=== PATIENT | female | born 1980 | race American Indian/Alaskan Native ===

== ENCOUNTER 2019-07-16 11:08 | Emergency (ER) | payer MEDICAID, OTHER ==
[2019-07-16 11:30] VITALS: BP 139/88
[2019-07-16 13:02] LABS: Basophils # (Auto) 0.1 K/mm3 (0.0-0.1); Basophils % (Auto) 0.8 % (0.0-1.8); Eosinophils # (Auto) 0.4 K/mm3 (0.0-0.4); Eosinophils % (Auto) 6.4 % (0.0-4.3); Hematocrit 39.4 % (30.3-42.9); Hemoglobin 12.9 gm/dl (10.1-14.3); Lymphocytes # (Auto) 1.9 K/mm3 (1.2-5.4); Lymphocytes % (Auto) 30.6 % (13.4-35.0); Mean Corpuscular HGB Conc 33 % (30-34); Mean Corpuscular Volume 81 fl (79-97); Monocytes # (Auto) 0.6 K/mm3 (0.0-0.8); Monocytes % (Auto) 9.3 % (0.0-7.3); Platelet Count 205 K/mm3 (140-440); Red Blood Count 4.85 M/mm3 (3.65-5.03); Red Cell Distribution Width 14.7 % (13.2-15.2)
[2019-07-16 13:42] LABS: BUN/Creatinine Ratio 18; Blood Urea Nitrogen 11 mg/dL (7-17); Calcium 9.3 mg/dL (8.4-10.2); Hemolysis Index 306
[2019-07-16 13:46] LABS: Alanine Aminotransferase 16 units/L (7-56)
== END 2019-07-16 14:05 | disposition left against medical advice (07) ==
LOC: ED 11:08
DX: R53.1 Weakness (principal); Z53.21 Procedure and treatment not carried out due to patient leaving prior to being seen by health care provider
CPT/HCPCS: 36415; 80053; 85025; 93005; 93010

== ENCOUNTER 2019-08-23 03:06 | Inpatient (IN) | payer OTHER ==
[2019-08-23] MEDS ORDERED: ASPIRIN 325 MG TAB PO ONE (03:34)
--- NOTE | 2019-08-23 03:56 | XRay Report ---
CHEST 1 VIEW 08/23/2019 3:35 AM INDICATION / CLINICAL INFORMATION: Right chest pain for 3 days. COMPARISON: None available. FINDINGS: SUPPORT DEVICES: None. HEART / MEDIASTINUM: No significant abnormality. LUNGS / PLEURA: No significant pulmonary or pleural abnormality. No pneumothorax. ADDITIONAL FINDINGS: No significant additional findings. IMPRESSION: 1. No acute abnormality of the chest. Signer Name: Aroldo Trujillo MD Signed: 08/23/2019 3:51 AM Workstation Name: [email or web address]
[2019-08-23] MEDS ORDERED: NITROGLYCERIN 2% OINT 1 GM TP ONE (04:04)
[2019-08-23 04:25] LABS: Basophils # (Auto) 0.1 K/mm3 (0.0-0.1); Basophils % (Auto) 0.6 % (0.0-1.8); Eosinophils # (Auto) 0.2 K/mm3 (0.0-0.4); Eosinophils % (Auto) 2.2 % (0.0-4.3); Hematocrit 36.3 % (30.3-42.9); Hemoglobin 11.7 gm/dl (10.1-14.3); Lymphocytes # (Auto) 2.3 K/mm3 (1.2-5.4); Lymphocytes % (Auto) 27.7 % (13.4-35.0); Mean Corpuscular HGB Conc 32 % (30-34); Mean Corpuscular Volume 81 fl (79-97); Monocytes # (Auto) 0.5 K/mm3 (0.0-0.8); Monocytes % (Auto) 5.8 % (0.0-7.3); Platelet Count 217 K/mm3 (140-440); Red Blood Count 4.51 M/mm3 (3.65-5.03); Red Cell Distribution Width 14.4 % (13.2-15.2)
[2019-08-23 04:45] LABS: INR 0.97 (0.87-1.13)
[2019-08-23 04:46] LABS: BUN/Creatinine Ratio 15; Blood Urea Nitrogen 9 mg/dL (7-17); Calcium 9.1 mg/dL (8.4-10.2); Hemolysis Index 2
[2019-08-23 04:46] LABS: Partial Thromboplastin Time 28.4 Sec. (24.2-36.6)
[2019-08-23] MEDS ORDERED: POTASSIUM CHLORIDE ER 20 MEQ TAB PO ONE (05:19)
--- NOTE | 2019-08-23 06:13 | Emergency Department Report ---
ED Chest Pain HPI - General Chief Complaint: Chest Pain Stated Complaint: CHEST PAIN Time Seen by Provider: 08/23/19 04:04 Source: patient, EMS Mode of arrival: Stretcher Limitations: No Limitations - History of Present Illness Initial Comments: Patient is a 39-year-old [place] female with a past medical history of hypertension congestive heart failure diabetes who is presenting with chest discomfort. Patient states for the past 2-3 days she has had some cysts central chest pain is worse with exertion and better with rest. Patient states his radi ation to her left arm and neck. Patient states he took 5 nitroglycerin pills over the last day and is only getting minimal relief. She denies cough cold congestion fevers chills nausea vomiting or neck stiffness. Patient states that rest currently her pain is a 4 out of 10 in severity. Severity scale (0 -10): 8 - Related Data Home Medications Medication Instructions Recorded Confirmed Last Taken Albuterol Sulfate [Ventolin HFA] 2 puff IH TID PRN 03/11/14 08/12/14 03/11/14 08:00 traMADoL [Ultram 50 MG tab] 50 mg PO Q6HR PRN 08/12/14 08/12/14 Unknown Previous Rx's Medication Instructions Recorded Last Taken Type Triamcinolone 0.025% [Kenalog 1 applic TP TID #1 tube 03/11/14 Unknown Rx 0.025% CREAM] labetaloL [Labetalol 100mg TAB] 100 mg PO QDAY #30 tablet 05/29/14 Unknown Rx Fluticasone [Flonase] 100 mcg NS QDAY 30 Days bottle 08/15/14 Unknown Rx Pantoprazole [Protonix TAB] 40 mg PO QDAY #30 tablet 08/15/14 Unknown Rx cloNIDine [Catapres] 0.1 mg PO BID 30 Days tablet 08/15/14 Unknown Rx Allergies Allergy/AdvReac Type Severity Reaction Status Date / Time Penicillins Allergy Dizziness Verified 03/11/14 10:38 Heart Score - HEART Score History: Highly suspicious EKG: Non-specific Age: < 45 Risk factors: > 3 risk factors or hx of atherosclerotic disease Troponin: < normal limit HEART Score: 5 ED Review of Systems ROS: Stated complaint: CHEST PAIN Other details as noted in HPI Comment: All other systems reviewed and negative ED Past Medical Hx - Past Medical History Previous Medical History?: Yes Hx Hypertension: Yes Hx Diabetes: Yes (Gestational) Hx Asthma: Yes - Surgical History Past Surgical History?: Yes Additional Surgical History: "internal bleeding in stomach; surgery x 3". c- section - Social History Smoking Status: Current Every Day Smoker Substance Use Type: None - Medications Home Medications: Home Medications Medication Instructions Recorded Confirmed Last Taken Type Albuterol Sulfate [Ventolin HFA] 2 puff IH TID PRN 03/11/14 08/12/14 03/11/14 08:00 History Triamcinolone 0.025% [Kenalog 1 applic TP TID #1 tube 03/11/14 08/12/14 Unknown Rx 0.025% CREAM] labetaloL [Labetalol 100mg TAB] 100 mg PO QDAY #30 tablet 05/29/14 08/12/14 Unknown Rx traMADoL [Ultram 50 MG tab] 50 mg PO Q6HR PRN 08/12/14 08/12/14 Unknown History Fluticasone [Flonase] 100 mcg NS QDAY 30 Days bottle 08/15/14 Unknown Rx Pantoprazole [Protonix TAB] 40 mg PO QDAY #30 tablet 08/15/14 Unknown Rx cloNIDine [Catapres] 0.1 mg PO BID 30 Days tablet 08/15/14 Unknown Rx ED Physical Exam - General Limitations: No Limitations General appearance: alert, in no apparent distress - Head Head exam: Present: atraumatic, normocephalic - Eye Eye exam: Present: normal appearance, PERRL, EOMI - ENT ENT exam: Present: mucous membranes moist - Neck Neck exam: Present: normal inspection - Respiratory Respiratory exam: Present: normal lung sounds bilaterally. Absent: respiratory distress, wheezes, rales, rhonchi - Cardiovascular Cardiovascular Exam: Present: regular rate, normal rhythm, normal heart sounds. Absent: systolic murmur, diastolic murmur, rubs, gallop - GI/Abdominal GI/Abdominal exam: Present: soft, normal bowel sounds. Absent: distended, tenderness, guarding, rebound, rigid - Extremities Exam Extremities exam: Present: normal inspection - Back Exam Back exam: Present: normal inspection - Neurological Exam Neurological exam: Present: alert, oriented X3 - Psychiatric Psychiatric exam: Present: normal affect, normal mood - Skin Skin exam: Present: warm, dry, intact, normal color. Absent: rash ED Course Vital Signs 1208/23/19 08/23/19 03:30 03:33 04:30 Temperature 98.8 F Pulse Rate 111 H 116 H Respiratory 16 13 Rate Blood Pressure 130/82 130/82 O2 Sat by Pulse 100 98 100 Oximetry 08/23/19 08/23/19 08/23/19 04:39 05:00 05:30 Temperature Pulse Rate 108 H 111 H 109 H Respiratory 26 H 18 Rate Blood Pressure 119/98 110/75 115/74 O2 Sat by Pulse 95 95 Oximetry ED Medical Decision Making - Lab Data Result diagrams: 08/23/19 03:58 08/23/19 03:58 Lab Results 08/23/19 08/23/19 08/23/19 Range/Units 03:58 03:58 04:10 WBC 8.4 (4.5-11.0) K/mm3 RBC 4.51 (3.65-5.03) M/mm3 Hgb 11.7 (10.1-14.3) gm/dl Hct 36.3 (30.3-42.9) % MCV 81 (79-97) fl MCH 26 L (28-32) pg MCHC 32 (30-34) % RDW 14.4 (13.2-15.2) % Plt Count 217 (140-440) K/mm3 Lymph % (Auto) 27.7 (13.4-35.0) % [place] % (Auto) 5.8 (0.0-7.3) % Eos % (Auto) 2.2 (0.0-4.3) % Baso % (Auto) 0.6 (0.0-1.8) % Lymph # 2.3 (1.2-5.4) K/mm3 [place] # 0.5 (0.0-0.8) K/mm3 Eos # 0.2 (0.0-0.4) K/mm3 Baso # 0.1 (0.0-0.1) K/mm3 Seg Neutrophils % 63.7 (40.0-70.0) % Seg Neutrophils # 5.4 (1.8-7.7) K/mm3 PT 13.0 (12.2-14.9) Sec. INR 0.97 (0.87-1.13) APTT 28.4 (24.2-36.6) Sec. Sodium 137 (137-145) mmol/L Potassium 3.0 L (3.6-5.0) mmol/L Chloride 95.6 L (98-107) mmol/L Carbon Dioxide 28 (22-30) mmol/L Anion Gap 16 mmol/L BUN 9 (7-17) mg/dL Creatinine 0.6 L (0.7-1.2) mg/dL Estimated GFR > 60 ml/min BUN/Creatinine Ratio 15 % Glucose 266 H (65-100) mg/dL Calcium 9.1 (8.4-10.2) mg/dL Troponin T < 0.010 (0.00-0.029) ng/mL NT-Pro-B Natriuret Pep (0-450) pg/mL 08/23/19 Range/Units 04:10 WBC (4.5-11.0) K/mm3 RBC (3.65-5.03) M/mm3 Hgb (10.1-14.3) gm/dl Hct (30.3-42.9) % MCV (79-97) fl MCH (28-32) pg MCHC (30-34) % RDW (13.2-15.2) % Plt Count (140-440) K/mm3 Lymph % (Auto) (13.4-35.0) % [place] % (Auto) (0.0-7.3) % Eos % (Auto) (0.0-4.3) % Baso % (Auto) (0.0-1.8) % Lymph # (1.2-5.4) K/mm3 [place] # (0.0-0.8) K/mm3 Eos # (0.0-0.4) K/mm3 Baso # (0.0-0.1) K/mm3 Seg Neutrophils % (40.0-70.0) % Seg Neutrophils # (1.8-7.7) K/mm3 PT (12.2-14.9) Sec. INR (0.87-1.13) APTT (24.2-36.6) Sec. Sodium (137-145) mmol/L Potassium (3.6-5.0) mmol/L Chloride (98-107) mmol/L Carbon Dioxide (22-30) mmol/L Anion Gap mmol/L BUN (7-17) mg/dL Creatinine (0.7-1.2) mg/dL Estimated GFR ml/min BUN/Creatinine Ratio % Glucose (65-100) mg/dL Calcium (8.4-10.2) mg/dL Troponin T (0.00-0.029) ng/mL NT-Pro-B Natriuret Pep 43.05 (0-450) pg/mL - EKG Data -: EKG Interpreted by [facility] EKG shows normal: sinus rhythm, axis, intervals, QRS complexes, ST-T waves Rate: tachycardia - EKG Data 08/23/19 06:11 Left anterior fascicular block is present. There is no ST segment elevation or depression. - Radiology Data CHEST 1 VIEW 08/23/2019 3:35 AM INDICATION / CLINICAL INFORMATION: Right chest pain for 3 days. COMPARISON: None available. FINDINGS: SUPPORT DEVICES: None. HEART / MEDIASTINUM: No significant abnormality. LUNGS / PLEURA: No significant pulmonary or pleural abnormality. No pneumothorax. ADDITIONAL FINDINGS: No significant additional findings. IMPRESSION: 1. No acute abnormality of the chest. Signer Name: Aroldo Trujillo MD Signed: 08/23/2019 3:51 AM Workstation Name: [id number] - Medical Decision Making Patient is a 39-year-old female with diabetes hypertension congestive heart failure who is presenting with some chest discomfort which is worse over the last several days. Patient's chest pain is worse with exertion. Her heart score is 5. Patient meets criteria for further inpatient evaluation. Critical Care Time: Yes (30) Critical care attestation.: If time is entered above; I have spent that time in minutes in the direct care of this critically ill patient, excluding procedure time. ED Disposition Clinical Impression: Chest pain Disposition: OP ADMIT IP TO THIS HOSP Is pt being admited?: Yes Does the pt Need Aspirin: No Condition: Stable Instructions: Chest Pain (ED) Referrals: PRIMARY CARE, [Primary Care Provider] - 3-5 Days Time of Disposition: 06:12
--- NOTE | 2019-08-23 07:31 | History and Physical Report ---
History of Present Illness Date of examination: 08/23/19 Date of admission: 08/22/19 Chief complaint: shortness of breath with chest pain History of present illness: Patient is a 39-year-old [place] female with a past medical history of hypertension, congestive heart failure, diabetes, LV thrombus for which she currently is on Xarelto and is followed at [place], morbid obesity, obstructive sleep apnea, who is presenting with chest discomfort. Patient states for the past 2-3 days she has had some cysts central chest pain is worse with exertion and better with rest. She also reports that she has been having left arm pain independent of this chest pain and also neck pain this is aggravated by any movement to the arm and also movement to the neck. She also reports that she has had right arm pain which has been chronic. Her pain is at worst she describes a 7/10 in intensity. She appears frustrated about her clinical condition as she states that is beginning to affect her sleep. She reports that she follows up at [facility] but does not feel that she is getting any significant help and feels that she has not been examined in a long time. Patient states his radiation to her left arm and neck. Patient states he took 5 nitroglycerin pills over the last day and is only getting minimal relief. She denies cough cold congestion fevers chills nausea vomiting or neck stiffness. At the time of seeing her she reports improvement in her shortness of breath but the pain in her upper arm still persists. Past History Past Medical History: CAD, diabetes, hypertension, hyperlipidemia, other (Obstructive sleep apnea) Past Surgical History: No surgical history Social history: no significant social history Family history: no significant family history Medications and Allergies Allergies Allergy/AdvReac Type Severity Reaction Status Date / Time Penicillins Allergy Dizziness Verified 03/11/14 10:38 Home Medications Medication Instructions Recorded Confirmed Last Taken Type Albuterol Sulfate [Ventolin HFA] 2 puff IH TID PRN 03/11/14 08/23/19 03/11/14 08:00 History cloNIDine [Catapres] 0.1 mg PO BID 30 Days tablet 08/15/14 08/23/19 Unknown Rx AtorvaSTATin [Lipitor] 1 tab PO DAILY 08/23/19 08/23/19 Unknown History Chlorthalidone [Thalitone] 1 tab PO DAILY 08/23/19 08/23/19 Unknown History Lisinopril [Zestril TAB] 10 mg PO QDAY 08/23/19 08/23/19 Unknown History Lispro Insulin [HumaLOG] 12 unit SQ AC 08/23/19 08/23/19 1 Day Ago History ~08/22/19 Lispro Insulin [HumaLOG] 20 unit SQ AC PRN 08/23/19 08/23/19 Unknown History Rivaroxaban [Xarelto] 1 tab PO DAILY 08/23/19 08/23/19 Unknown History carvediloL [Coreg] 12.5 mg PO BID 08/23/19 08/23/19 Unknown History Review of Systems Constitutional: lethargy, no weight loss, no weight gain, no fever, no chills, no sweats, no night sweats, no fatigue, no weakness, no malaise Cardiovascular: chest pain, orthopnea, shortness of breath, dyspnea on exertion, paroxysmal nocturnal dyspnea, no palpitations, no rapid/irregular heart beat, no edema, no syncope, no lightheadedness Respiratory: cough, shortness of breath, dyspnea on exertion, no cough with sputum, no excessive sputum, no hemoptysis, no congestion, no wheezing, no pleurisy, no pain, no pain on inspiration Gastrointestinal: no abdominal pain, no nausea, no change in bowel habits, no hematemesis Genitourinary Female: no flank pain Musculoskeletal: no neck pain, no arm numbness/tingling, no shooting leg pain, no muscle weakness, no muscle cramps, no limitation of motion, no loss of height Integumentary: no rash, no wounds, no boils, no lesions, no acne Neurological: no transient paralysis, no numbness, no convulsions, no memory loss, no sensory deficit, no burning pain Psychiatric: no sleep disturbances, no suicidal ideation, no anhedonia, no confusion, no sadness/tearfullness Endocrine: no polyphagia, no polyuria, no excessive sweating, no deepening of the voice, no thyroid mass Hematologic/Lymphatic: no easy bleeding Allergic/Immunologic: no allergic rhinitis Exam - Physical Exam Narrative exam: VITAL SIGNS: Reviewed. GENERAL: The patient appears normally developed, Vital signs as documented. HEAD: No signs of head trauma. EYES: Pupils are equal. Extraocular motions intact. EARS: Hearing grossly intact. MOUTH: Oropharynx is normal. NECK: No adenopathy, no JVD. CHEST: Chest with clear breath sounds bilaterally. No wheezes, rales, or rhonchi. CARDIAC: Regular rate and rhythm. S1 and S2, without murmurs, gallops, or rubs. VASCULAR: No Edema. Peripheral pulses normal and equal in all extremities. ABDOMEN: Soft, non tender and non distended. No rebound or guarding, and no masses palpated. Bowel Sounds normal. MUSCULOSKELETAL: Good range of motion of all major joints. Extremities without clubbing, cyanosis or edema. NEUROLOGIC EXAM: Alert and oriented x 3 No focal sensory or strength deficits. Speech normal. Follows commands. PSYCHIATRIC: Mood normal. SKIN: detial exam as documented in skin assessment - Constitutional Vitals: Temp Pulse Resp BP Pulse Ox 98.8 F 107 H 16 125/82 99 08/23/19 03:30 08/23/19 06:30 08/23/19 06:30 08/23/19 06:30 08/23/19 06:30 Results - Labs CBC & Chem 7: 08/23/19 07:47 08/23/19 07:47 Labs: Laboratory Last Values WBC 8.4 K/mm3 (4.5-11.0) 08/23/19 03:58 RBC 4.51 M/mm3 (3.65-5.03) 08/23/19 03:58 Hgb 11.7 gm/dl (10.1-14.3) 08/23/19 03:58 Hct 36.3 % (30.3-42.9) 08/23/19 03:58 MCV 81 fl (79-97) 08/23/19 03:58 MCH 26 pg (28-32) L 08/23/19 03:58 MCHC 32 % (30-34) 08/23/19 03:58 RDW 14.4 % (13.2-15.2) 08/23/19 03:58 Plt Count 217 K/mm3 (140-440) 08/23/19 03:58 Lymph % (Auto) 27.7 % (13.4-35.0) 08/23/19 03:58 [place] % (Auto) 5.8 % (0.0-7.3) 08/23/19 03:58 Eos % (Auto) 2.2 % (0.0-4.3) 08/23/19 03:58 Baso % (Auto) 0.6 % (0.0-1.8) 08/23/19 03:58 Lymph # 2.3 K/mm3 (1.2-5.4) 08/23/19 03:58 [place] # 0.5 K/mm3 (0.0-0.8) 08/23/19 03:58 Eos # 0.2 K/mm3 (0.0-0.4) 08/23/19 03:58 Baso # 0.1 K/mm3 (0.0-0.1) 08/23/19 03:58 Seg Neutrophils % 63.7 % (40.0-70.0) 08/23/19 03:58 Seg Neutrophils # 5.4 K/mm3 (1.8-7.7) 08/23/19 03:58 PT 13.0 Sec. (12.2-14.9) 08/23/19 04:10 INR 0.97 (0.87-1.13) 08/23/19 04:10 APTT 28.4 Sec. (24.2-36.6) 08/23/19 04:10 Sodium 137 mmol/L (137-145) 08/23/19 03:58 Potassium 3.0 mmol/L (3.6-5.0) L 08/23/19 03:58 Chloride 95.6 mmol/L (98-107) L 08/23/19 03:58 Carbon Dioxide 28 mmol/L (22-30) 08/23/19 03:58 Anion Gap 16 mmol/L 08/23/19 03:58 BUN 9 mg/dL (7-17) 08/23/19 03:58 Creatinine 0.6 mg/dL (0.7-1.2) L 08/23/19 03:58 Estimated GFR > 60 ml/min 08/23/19 03:58 BUN/Creatinine Ratio 15 % 08/23/19 03:58 Glucose 266 mg/dL (65-100) H 08/23/19 03:58 Calcium 9.1 mg/dL (8.4-10.2) 08/23/19 03:58 Troponin T < 0.010 ng/mL (0.00-0.029) 08/23/19 03:58 NT-Pro-B Natriuret Pep 43.05 pg/mL (0-450) 08/23/19 04:10 Assessment and Plan Assessment and plan: Patient is a 39-year-old [place] female with a past medical history of hypertension, congestive heart failure, diabetes, LV thrombus for which she currently is on Xarelto and is followed at [facility], morbid obesity, obstructive sleep apnea, who is presenting with chest discomfort. Patient states for the past 2-3 days she has had some cysts central chest pain is worse with exertion and better with rest. She also reports that she has been having left arm pain independent of this chest pain and also neck pain this is aggravated by any movement to the arm and also movement to the neck. She also reports that she has had right arm pain which has been chronic. Her pain is at worst she describes a 7/10 in intensity. She appears frustrated about her clinical condition as she states that is beginning to affect her sleep. She reports that she follows up at [facility] but does not feel that she is getting any significant help and feels that she has not been examined in a long time. Patient states his radiation to her left arm and neck. Patient states he took 5 nitroglycerin pills over the last day and is only getting minimal relief. She denies cough cold congestion fevers chills nausea vomiting or neck stiffness. At the time of seeing her she reports improvement in her shortness of breath but the pain in her upper arm still persists. Unstable Angina Acute on chronic systolic congestive heart failure Cardiomyopathy LV thrombus Morbid obesity Obstructive sleep apnea presumed Diabetes mellitus with hyperglycemia PLAN Admit to Telemetry Discussed with cardiology will start patient on Heparin and hold Xeralto for possible ischemic work up Diuresis Per cardiology ASA, STATIN Insulin management Pulmonary outpatient for Sleep study weightloss recommended in detail to the patient and she verablized understanding DVT/GI prophy Advance Directives: Yes Plan of care discussed with patient/family: Yes
[2019-08-23] MEDS ORDERED: ALBUTEROL 8.5 GM INHALATION IH PRN (07:33)
[2019-08-23] MEDS ORDERED: DEXTROSE 50% IN WATER (25GM) 50 ML SYRINGE IV PRN (07:34)
[2019-08-23 08:14] LABS: Basophils # (Auto) 0.1 K/mm3 (0.0-0.1); Basophils % (Auto) 0.8 % (0.0-1.8); Eosinophils # (Auto) 0.2 K/mm3 (0.0-0.4); Eosinophils % (Auto) 2.6 % (0.0-4.3); Hematocrit 36.3 % (30.3-42.9); Hemoglobin 11.8 gm/dl (10.1-14.3); Lymphocytes # (Auto) 2.9 K/mm3 (1.2-5.4); Lymphocytes % (Auto) 31.9 % (13.4-35.0); Mean Corpuscular HGB Conc 33 % (30-34); Mean Corpuscular Volume 80 fl (79-97); Monocytes # (Auto) 0.5 K/mm3 (0.0-0.8); Monocytes % (Auto) 5.8 % (0.0-7.3); Platelet Count 237 K/mm3 (140-440); Red Blood Count 4.54 M/mm3 (3.65-5.03); Red Cell Distribution Width 14.4 % (13.2-15.2)
[2019-08-23 08:25] LABS: BUN/Creatinine Ratio 15; Blood Urea Nitrogen 9 mg/dL (7-17); Calcium 9.5 mg/dL (8.4-10.2); Chol/HDL Ratio 3.26 %; HDL Cholesterol 30 mg/dL (40-59); Hemolysis Index 5; LDL Cholesterol,Direct 59 mg/dL (50-130)
[2019-08-23] MEDS ORDERED: RIVAROXABAN 20 MG TAB PO SCH (10:00)
[2019-08-23] MEDS ORDERED: LISINOPRIL 10 MG TAB PO SCH (10:00)
[2019-08-23] MEDS ORDERED: INSULIN LISPRO 100 UNIT/ML SUB-Q SCH (10:00)
[2019-08-23] MEDS ORDERED: CHLORTHALIDONE 25 MG TAB PO SCH (10:00)
--- NOTE | 2019-08-23 11:04 | Consultation ---
History of Present Illness Consult date: 08/23/19 Requesting physician: HORACE DOVE Consult reason: chest pain History of present illness: The pt is a 39 YO female with a past medical history of HF with reported EF 10% in 11/2018, "clot in heart", anticoagulated on Xarelto, HTN, DM, sleep apnea (doesn't have a CPAP), obesity. She is previously unknown to our practice, she reports that she is intermittently seen by [facility]. She presented with c/o chest pain and SOB for the past 2-3 days. She describes her chest pain as an intermittent left-sided stabbing pain which radiates down into her left arm and neck. She took a total of 5 nitroglycerin pills over the last few days with only minimal relief of the pain. She denies any palpitations, n/v, diaphoresis, dizziness or syncope. She reports compliance with her medications. She reports h/o insomnia and is tearful on evaluation because she is "so exhausted but and unable to sleep". Of note, pt denies any recent ischemic evaluation at [facility]. She states that she underwent LHC many years ago prior to her diagnosis of HF "for a different reason" and was told the LHC was normal. Past History Past Medical History: other (as per HPI) Medications and Allergies Allergies Allergy/AdvReac Type Severity Reaction Status Date / Time Penicillins Allergy Dizziness Verified 03/11/14 10:38 Home Medications Medication Instructions Recorded Confirmed Last Taken Type Albuterol Sulfate [Ventolin HFA] 2 puff IH TID PRN 03/11/14 08/23/19 03/11/14 08:00 History cloNIDine [Catapres] 0.1 mg PO BID 30 Days tablet 08/15/14 08/23/19 Unknown Rx AtorvaSTATin [Lipitor] 1 tab PO DAILY 08/23/19 08/23/19 Unknown History Chlorthalidone [Thalitone] 1 tab PO DAILY 08/23/19 08/23/19 Unknown History Lisinopril [Zestril TAB] 10 mg PO QDAY 08/23/19 08/23/19 Unknown History Lispro Insulin [HumaLOG] 20 unit SQ DAILY 08/23/19 08/23/19 Unknown History Rivaroxaban [Xarelto] 1 tab PO DAILY 08/23/19 08/23/19 Unknown History carvediloL [Coreg] 12.5 mg PO BID 08/23/19 08/23/19 Unknown History Active Meds: Active Medications Albuterol (Proair) 2 puff IH TID PRN PRN Reason: Wheezing Atorvastatin Calcium (Lipitor) 40 mg PO QHS [facility] Carvedilol (Coreg) 12.5 mg PO BID [facility] Chlorthalidone (Thalitone) mg PO DAILY [facility] Clonidine HCl (Catapres) 0.1 mg PO BID [facility] Dextrose (D50w (25gm) Syringe) 50 ml IV Q30MIN PRN; Protocol PRN Reason: Hypoglycemia Insulin Human Lispro (Humalog) 20 unit SUB-Q DAILY [facility] Insulin Human Lispro (Humalog) 0 unit SUB-Q ACHS MONTEZ; Protocol Lisinopril (Zestril) 10 mg PO QDAY [facility] Rivaroxaban (Xarelto) mg PO DAILY [facility]; Protocol Sodium Chloride (Sodium Chloride Flush Syringe 10 Ml) 10 ml IV PRN PRN PRN Reason: LINE FLUSH Stop: 09/02/19 07:30 Review of Systems Constitutional: no weight loss, no weight gain, no fever, no chills, no sweats Ears, nose, mouth and throat: no ear pain, no nose pain, no sinus pressure, no sinus pain Cardiovascular: chest pain, orthopnea, shortness of breath, dyspnea on exertion, high blood pressure, decreased exercise tolerance, no palpitations, no rapid/irregular heart beat, no edema, no syncope, no lightheadedness Respiratory: shortness of breath, dyspnea on exertion, no cough, no congestion, no wheezing, no pain on inspiration Gastrointestinal: no abdominal pain, no nausea, no vomiting, no diarrhea, no constipation, no change in bowel habits Genitourinary Female: no pelvic pain, no flank pain, no dysuria, no urinary frequency, no urgency Musculoskeletal: no neck stiffness, no neck pain, no shooting arm pain, no arm numbness/tingling, no low back pain, no shooting leg pain Integumentary: no rash, no pruritis, no redness, no sores, no wounds Neurological: no head injury, no paralysis, no weakness, no parathesias, no numbness, no tingling, no seizures, no syncope Psychiatric: anxiety, insomnia Endocrine: no cold intolerance, no heat intolerance Hematologic/Lymphatic: no easy bruising, no easy bleeding Allergic/Immunologic: no urticaria Physical Examination Vital Signs Temp Pulse Resp BP Pulse Ox 98.8 F 113 H 22 146/87 99 08/23/19 03:30 08/23/19 03:30 08/23/19 03:30 08/23/19 03:30 08/23/19 03:30 General appearance: no acute distress HEENT: Positive: PERRL, Normocephaly, Mucus Membranes Moist Neck: Positive: neck supple, trachea midline Cardiac: Positive: Regular Rhythm, S1/S2 Lungs: Positive: Decreased Breath Sounds Neuro: Positive: Grossly Intact Abdomen: Negative: Tender Skin: Negative: Rash Musculoskeletal: No Pain Extremities: Absent: edema Results 08/23/19 07:47 08/23/19 07:47 Coagulation 08/23/19 Range/Units 04:10 PT 13.0 (12.2-14.9) Sec. INR 0.97 (0.87-1.13) APTT 28.4 (24.2-36.6) Sec. Lipids 08/23/19 Range/Units 07:47 Triglycerides 173 H (2-149) mg/dL Cholesterol 98 (50-199) mg/dL HDL Cholesterol 30 L (40-59) mg/dL Cholesterol/HDL Ratio 3.26 % CBC 08/23/19 08/23/19 Range/Units 03:58 07:47 WBC 8.4 9.2 (4.5-11.0) K/mm3 RBC 4.51 4.54 (3.65-5.03) M/mm3 Hgb 11.7 11.8 (10.1-14.3) gm/dl Hct 36.3 36.3 (30.3-42.9) % Plt Count 217 237 (140-440) K/mm3 Lymph # 2.3 2.9 (1.2-5.4) K/mm3 [place] # 0.5 0.5 (0.0-0.8) K/mm3 Eos # 0.2 0.2 (0.0-0.4) K/mm3 Baso # 0.1 0.1 (0.0-0.1) K/mm3 Comprehensive Metabolic Panel 08/23/19 08/23/19 Range/Units 03:58 07:47 Sodium 137 137 (137-145) mmol/L Potassium 3.0 L 3.6 (3.6-5.0) mmol/L Chloride 95.6 L 93.7 L (98-107) mmol/L Carbon Dioxide 28 25 (22-30) mmol/L BUN 9 9 (7-17) mg/dL Creatinine 0.6 L 0.6 L (0.7-1.2) mg/dL Glucose 266 H 238 H (65-100) mg/dL Calcium 9.1 9.5 (8.4-10.2) mg/dL - Imaging and Cardiology Echo: pending EKG: report reviewed, image reviewed EKG interpretations - Telemetry EKG Rhythm: Sinus Tachycardia - EKG Sinus rhythms and dysrhythmias: sinus tachycardia Assessment and Plan Agree with present cardiac management. Pt's chest pain is currently resolved. AMI r/o. Pt reports h/o HF with reported EF 10% in 11/2018 and "clot in heart", anticoagulated on Xarelto. No recent ischemic evaluation reported. Will attempt to obtain [facility] records. Obtain echo. Will plan for ischemic evaluation (lexiscan MPI or LHC) pending echo results - suspect pt will require LHC on Monday if her cardiomyopathy is as severe as she reports. Will hold Xarelto and initiate heparin gtt in setting of reported h/o intracardiac thrombus and plan to resume Xarelto once ischemic evaluation is completed. Consider cardiac defibrillator (LifeVest with OP consideration for AICD) pending echo results. Further recs to follow per hospital course. The patient has been seen in conjunction with Dr. Hernandez who agrees with the assessment and plan of care. - Patient Problems (1) Chest pain Current Visit: Yes Status: Acute (2) Acute on chronic HFrEF (heart failure with reduced ejection fraction) Current Visit: Yes Status: Acute (3) Cardiomyopathy Current Visit: Yes Status: Chronic (4) Intracardiac thrombosis Current Visit: Yes Status: Acute Plan to address problem: reported (5) Hypertension Current Visit: Yes Status: Chronic (6) Diabetes Current Visit: Yes Status: Chronic (7) Sleep apnea Current Visit: Yes Status: Chronic (8) Obesity Current Visit: Yes Status: Chronic
[2019-08-23] MEDS ORDERED: ALBUTEROL 2.5 MG/3 ML NEBU IH PRN (12:16)
[2019-08-23] MEDS: cloNIDine 0.1 MG TAB PO SCH ×2 (13:15→22:53)
[2019-08-23] MEDS: carvediloL 12.5 MG TAB PO SCH ×2 (13:16→22:51)
[2019-08-23] MEDS ORDERED: HEPARIN 10,000 UNITS/10 ML VIAL IV ONE (13:17)
[2019-08-23 13:40] LABS: Hematocrit 34.9 % (30.3-42.9); Hemoglobin 11.4 gm/dl (10.1-14.3)
[2019-08-23] MEDS: INSULIN LISPRO 100 UNIT/ML SUB-Q SCH ×3 (13:52→22:56)
[2019-08-23] MEDS: HEPARIN/ 0.45% NACL DRIP 25,000 UNIT/500 ML BAG IV SCH (14:23)
[2019-08-23] MEDS: FUROSEMIDE 40 MG/4 ML INJ IV SCH (14:24)
[2019-08-23] MEDS: LISINOPRIL 20 MG TAB PO SCH (14:24)
[2019-08-23] MEDS: MORPHINE 2 MG/1 ML INJ IV PRN ×2 (14:28→23:30)
[2019-08-23 14:58] LABS: INR 0.98 (0.87-1.13)
[2019-08-23 15:03] LABS: Partial Thromboplastin Time 25.7 Sec. (24.2-36.6)
[2019-08-23] MEDS ORDERED: FLU VACC QUAD 2019-20 (3 YR UP)/PF 60 MCG/0.5 ML SYRINGE IM ONE (17:24)
[2019-08-24] MEDS: HEPARIN/ 0.45% NACL DRIP 25,000 UNIT/500 ML BAG IV SCH (07:06)
[2019-08-24] MEDS ORDERED: INSULIN LISPRO 100 UNIT/ML SUB-Q SCH (07:30)
[2019-08-24] MEDS: INSULIN LISPRO 100 UNIT/ML SUB-Q SCH ×4 (08:27→22:24)
[2019-08-24] MEDS: MORPHINE 2 MG/1 ML INJ IV PRN ×2 (08:27→22:24)
--- NOTE | 2019-08-24 09:43 | Progress Note ---
Assessment and Plan clinically improved tele reveals sr/st - no dyrhythmias noted tte reveals near normal lv fxn w/o valvulopathy CT cervical spine today per primary md will check stress mpi on monday cont current cardiac meds including noac for now - Patient Problems (1) Acute on chronic HFrEF (heart failure with reduced ejection fraction) Current Visit: Yes Status: Acute (2) Intracardiac thrombosis Current Visit: Yes Status: Acute (3) Cardiomyopathy Current Visit: Yes Status: Chronic (4) Diabetes Current Visit: Yes Status: Chronic (5) Hypertension Current Visit: Yes Status: Chronic (6) Obesity Current Visit: Yes Status: Chronic (7) Sleep apnea Current Visit: Yes Status: Chronic Subjective Date of service: 08/24/19 Interval history: feels better Objective Vital Signs Temp Pulse Pulse Pulse Pulse Resp BP 08/24/19 07:57 98.6 F 96 H 20 107/57 08/24/19 05:01 98.3 F 101 H 20 136/49 08/23/19 23:00 98 H 08/23/19 22:53 90 121/50 08/23/19 22:51 90 121/50 08/23/19 22:00 89 93 H 93 H 18 08/23/19 21:56 98.3 F 100 H 20 114/68 08/23/19 17:11 100 H 154/86 08/23/19 15:26 99 H 08/23/19 12:47 98.1 F 111 H 18 136/87 08/23/19 10:43 123/54 Pulse Ox 08/24/19 07:57 92 08/24/19 05:01 97 08/23/19 23:00 08/23/19 22:53 08/23/19 22:51 08/23/19 22:00 98 08/23/19 21:56 95 08/23/19 17:11 94 08/23/19 15:26 08/23/19 12:47 95 08/23/19 10:43 - Physical Examination HEENT: Positive: PERRL, Normocephaly, Mucus Membranes Moist Neck: Positive: neck supple, trachea midline Neuro: Positive: Grossly Intact Abdomen: Negative: Tender Skin: Negative: Rash Musculoskeletal: No Pain Extremities: Absent: edema - Labs and Meds Coagulation 08/23/19 Range/Units 14:16 PT 13.1 (12.2-14.9) Sec. INR 0.98 (0.87-1.13) APTT 25.7 (24.2-36.6) Sec. CBC 08/23/19 08/23/19 Range/Units 01:30 03:58 WBC 8.4 (4.5-11.0) K/mm3 RBC 4.51 (3.65-5.03) M/mm3 Hgb 11.4 11.7 (10.1-14.3) gm/dl Hct 34.9 36.3 (30.3-42.9) % Plt Count 208 217 (140-440) K/mm3 Lymph # 2.3 (1.2-5.4) K/mm3 [place] # 0.5 (0.0-0.8) K/mm3 Eos # 0.2 (0.0-0.4) K/mm3 Baso # 0.1 (0.0-0.1) K/mm3 - Imaging and Cardiology EKG: report reviewed, image reviewed Echo: pending - EKG Sinus rhythms and dysrhythmias: sinus tachycardia
[2019-08-24] MEDS: FUROSEMIDE 40 MG/4 ML INJ IV SCH (10:17)
[2019-08-24] MEDS: cloNIDine 0.1 MG TAB PO SCH ×2 (10:17→22:23)
[2019-08-24] MEDS: LISINOPRIL 20 MG TAB PO SCH (10:17)
[2019-08-24] MEDS: carvediloL 12.5 MG TAB PO SCH ×2 (10:17→22:22)
[2019-08-24] MEDS: INSULIN NPH/REGULAR 70/30 INJ SUB-Q SCH ×2 (11:06→17:30)
[2019-08-24] MEDS: FLU VACC QUAD 2019-20 (3 YR UP)/PF 60 MCG/0.5 ML SYRINGE IM ONE ×2 (11:08→11:16)
--- NOTE | 2019-08-24 11:48 | Cat Scan Report ---
CT CERVICAL SPINE: 08/24/2019 INDICATION / CLINICAL INFORMATION: left arm pain. COMPARISON: None available. FINDINGS: CT images of the cervical spine were obtained. Images are evaluated in the axial, coronal, and sagitt al planes. Image quality is somewhat limited in uhblti-qv-hqgol ratio due to signal loss secondary to body habi tus. 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 There is no evidence of acute abnormality. Slight reversal of cervical lordosis is centered at the C5 level with the patient positioned for this exam. There is no gross evidence of osseous canal or foraminal narrowing. Subtle soft tissue abnormalities involving the epidural space or disc profiles be difficult to furthe r evaluate on this exam due to technical limitations described above. LEVEL BY LEVEL ANALYSIS: . CRANIOCERVICAL JUNCTION: Unremarkable. PARASPINAL STRUCTURES: Unremarkable Incidental note is made of an empty sella, generally considered to be of no clinical significance. IMPRESSION: No gross evidence of acute abnormality. Exam quality limited due to decreased iekbqd-xr-jaefq ratio. Further detail could be obtained with the use of MRI or CT myelography. All CT scans at this location are performed using dose reduction to ALARA by means of automated expos ure control. Signer Name: Haroon Navarro MD Signed: 08/24/2019 11:44 AM Workstation Name: [id number]
--- NOTE | 2019-08-24 13:12 | Progress Note ---
Assessment and Plan Assessment and plan: Patient is a 39-year-old [place] female with a past medical history of hypertension, congestive heart failure, diabetes, LV thrombus for which she currently is on Xarelto and is followed at [facility], morbid obesity, obstructive sleep apnea, who is presenting with chest discomfort. Patient states for the p ast 2-3 days she has had some cysts central chest pain is worse with exertion and better with rest. She also reports that she has been having left arm pain independent of this chest pain and also neck pain this is aggravated by any movement to the arm and also movement to the neck. She also reports that she has had right arm pain which has been chronic. Her pain is at worst she describes a 7/10 in intensity. She appears frustrated about her clinical condition as she states that is beginning to affect her sleep. She reports that she follows up at [facility] but does not feel that she is getting any significant help and feels that she has not been examined in a long time. Patient states his radiation to her left arm and neck. Patient states he took 5 nitroglycerin pills over the last day and is only getting minimal relief. She denies cough cold congestion fevers chills nausea vomiting or neck stiffness. At the time of seeing her she reports improvement in her shortness of breath but the pain in her upper arm still persists. Unstable Angina Acute on chronic systolic congestive heart failure Cardiomyopathy LV thrombus Morbid obesity Obstructive sleep apnea presumed Diabetes mellitus with hyperglycemia PLAN Continue supportive care Adjust insulin regimen Discussed with cardiology will start patient on Heparin and hold Xeralto for possible ischemic work up Diuresis Per cardiology ASA, STATIN Discuss cardiology recommendation of considering LifeVest with outpatient consideration for AICD for possible cardiac defibrillation patient verbalized understanding. Echo results pending Insulin management Pulmonary outpatient for Sleep study weightloss recommended in detail to the patient and she verablized understanding DVT/GI prophy Anticipate further ischemic work-up on Monday. History Interval history: Patient seen and examined this morning resting comfortably no acute distress. She is tolerating her diet. I did have extensive discussion with her about her insulin regimen and the need to change it to 7030 which she says has not been tried before she is agreeable to this. Hospitalist Physical - Physical exam Narrative exam: VITAL SIGNS: Reviewed. GENERAL: The patient appears normally developed, Vital signs as documented. HEAD: No signs of head trauma. EYES: Pupils are equal. Extraocular motions intact. EARS: Hearing grossly intact. MOUTH: Oropharynx is normal. NECK: No adenopathy, no JVD. CHEST: Chest with clear breath sounds bilaterally. No wheezes, rales, or rhonchi. CARDIAC: Regular rate and rhythm. S1 and S2, without murmurs, gallops, or rubs. VASCULAR: No Edema. Peripheral pulses normal and equal in all extremities. ABDOMEN: Soft, non tender and non distended. No rebound or guarding, and no masses palpated. Bowel Sounds normal. MUSCULOSKELETAL: Good range of motion of all major joints. Extremities without clubbing, cyanosis or edema. NEUROLOGIC EXAM: Alert and oriented x 3 No focal sensory or strength deficits. Speech normal. Follows commands. PSYCHIATRIC: Mood normal. SKIN: detial exam as documented in skin assessment - Constitutional Vitals: Temp Pulse Resp BP Pulse Ox 99.6 F 98 H 20 118/70 94 08/24/19 11:06 08/24/19 11:06 08/24/19 11:06 08/24/19 11:06 08/24/19 11:06 General appearance: Present: no acute distress Results - Labs CBC & Chem 7: 08/23/19 07:47 08/23/19 07:47 Labs: Laboratory Last Values WBC 9.2 K/mm3 (4.5-11.0) 08/23/19 07:47 RBC 4.54 M/mm3 (3.65-5.03) 08/23/19 07:47 Hgb 11.8 gm/dl (10.1-14.3) 08/23/19 07:47 Hct 36.3 % (30.3-42.9) 08/23/19 07:47 MCV 80 fl (79-97) 08/23/19 07:47 MCH 26 pg (28-32) L 08/23/19 07:47 MCHC 33 % (30-34) 08/23/19 07:47 RDW 14.4 % (13.2-15.2) 08/23/19 07:47 Plt Count 237 K/mm3 (140-440) 08/23/19 07:47 Lymph % (Auto) 31.9 % (13.4-35.0) 08/23/19 07:47 [place] % (Auto) 5.8 % (0.0-7.3) 08/23/19 07:47 Eos % (Auto) 2.6 % (0.0-4.3) 08/23/19 07:47 Baso % (Auto) 0.8 % (0.0-1.8) 08/23/19 07:47 Lymph # 2.9 K/mm3 (1.2-5.4) 08/23/19 07:47 [place] # 0.5 K/mm3 (0.0-0.8) 08/23/19 07:47 Eos # 0.2 K/mm3 (0.0-0.4) 08/23/19 07:47 Baso # 0.1 K/mm3 (0.0-0.1) 08/23/19 07:47 Seg Neutrophils % 58.9 % (40.0-70.0) 08/23/19 07:47 Seg Neutrophils # 5.4 K/mm3 (1.8-7.7) 08/23/19 07:47 PT 13.1 Sec. (12.2-14.9) 08/23/19 14:16 INR 0.98 (0.87-1.13) 08/23/19 14:16 APTT 25.7 Sec. (24.2-36.6) 08/23/19 14:16 Heparin Anti-Xa Level 0.34 U.I./ml (0.3-0.7) 08/23/19 20:48 Sodium 137 mmol/L (137-145) 08/23/19 07:47 Potassium 3.6 mmol/L (3.6-5.0) 08/23/19 07:47 Chloride 93.7 mmol/L (98-107) L 08/23/19 07:47 Carbon Dioxide 25 mmol/L (22-30) 08/23/19 07:47 Anion Gap 22 mmol/L 08/23/19 07:47 BUN 9 mg/dL (7-17) 08/23/19 07:47 Creatinine 0.6 mg/dL (0.7-1.2) L 08/23/19 07:47 Estimated GFR > 60 ml/min 08/23/19 07:47 BUN/Creatinine Ratio 15 % 08/23/19 07:47 Glucose 238 mg/dL (65-100) H 08/23/19 07:47 POC Glucose 286 (70-105) H 08/24/19 11:14 Calcium 9.5 mg/dL (8.4-10.2) 08/23/19 07:47 Troponin T < 0.010 ng/mL (0.00-0.029) 08/23/19 09:56 NT-Pro-B Natriuret Pep 43.05 pg/mL (0-450) 08/23/19 04:10 Triglycerides 173 mg/dL (2-149) H 08/23/19 07:47 Cholesterol 98 mg/dL (50-199) 08/23/19 07:47 LDL Cholesterol Direct 59 mg/dL (50-130) 08/23/19 07:47 HDL Cholesterol 30 mg/dL (40-59) L 08/23/19 07:47 Cholesterol/HDL Ratio 3.26 % 08/23/19 07:47 Active Medications - Current Medications Current Medications: Generic Name Dose Route Start Last Admin Trade Name Freq PRN Reason Stop Dose Admin Albuterol 2.5 mg 08/23/19 12:16 Proventil IH Q4HRT PRN Shortness Of Breath Atorvastatin Calcium 40 mg 08/23/19 22:00 08/23/19 22:51 Lipitor PO 40 mg QHS [facility] Administration Carvedilol 12.5 mg 08/23/19 10:00 08/24/19 10:17 Coreg PO 12.5 mg BID [facility] Administration Clonidine HCl 0.1 mg 08/23/19 10:00 08/24/19 10:17 Catapres PO 0.1 mg BID [facility] Administration Dextrose 50 ml 08/23/19 07:34 D50w (25gm) Syringe IV Q30MIN PRN Hypoglycemia Protocol Furosemide 40 mg 08/23/19 14:00 08/24/19 10:17 Lasix IV 40 mg QDAY [facility] Administration Insulin Human Isoph/Insulin Regular 20 unit 08/24/19 11:00 08/24/19 11:06 Humulin 70/30 SUB-Q 20 unit BIDDIAB [facility] Administration Insulin Human Lispro 0 unit 08/23/19 11:30 08/24/19 12:01 Humalog SUB-Q 6 unit ACHS [facility] Administration Protocol Lisinopril 20 mg 08/23/19 14:00 08/24/19 10:17 Zestril PO 20 mg QDAY [facility] Administration Morphine Sulfate 2 mg 08/23/19 14:00 08/24/19 08:27 Morphine IV 2 mg Q6H PRN Administration Pain, Moderate (4-6) Sodium Chloride 10 ml 08/23/19 07:31 Sodium Chloride Flush Syringe 10 Ml IV 09/02/19 07:30 PRN PRN LINE FLUSH
[2019-08-25 07:54] LABS: Hematocrit 33.9 % (30.3-42.9)
[2019-08-25] MEDS: MORPHINE 2 MG/1 ML INJ IV PRN ×2 (08:23→21:25)
[2019-08-25] MEDS: INSULIN NPH/REGULAR 70/30 INJ SUB-Q SCH ×2 (08:23→17:20)
[2019-08-25] MEDS: INSULIN LISPRO 100 UNIT/ML SUB-Q SCH ×4 (08:24→21:24)
--- NOTE | 2019-08-25 09:29 | Progress Note ---
Assessment and Plan clinically improved tele reveals sr/st - no dyrhythmias noted tte reveals near normal lv fxn w/o valvulopathy CT cervical spine yesterday per primary md stress mpi in am d/c iv heparin, cont asa - Patient Problems (1) Acute on chronic HFrEF (heart failure with reduced ejection fraction) Current Visit: Yes Status: Acute (2) Intracardiac thrombosis Current Visit: Yes Status: Acute (3) Cardiomyopathy Current Visit: Yes Status: Chronic (4) Diabetes Current Visit: Yes Status: Chronic (5) Hypertension Current Visit: Yes Status: Chronic (6) Obesity Current Visit: Yes Status: Chronic (7) Sleep apnea Current Visit: Yes Status: Chronic Subjective Date of service: 08/25/19 Interval history: feels better, no sxs Objective Vital Signs Temp Pulse Pulse Pulse Pulse Resp BP 08/25/19 08:05 92 H 20 125/75 08/25/19 04:33 98.0 F 94 H 18 93/37 08/24/19 23:54 98.6 F 85 18 105/44 08/24/19 22:23 100 H 128/74 08/24/19 22:22 100 H 128/74 08/24/19 22:00 93 H 97 H 97 H 20 08/24/19 19:33 93 H 08/24/19 19:13 98.5 F 97 H 20 98/75 08/24/19 15:52 98.3 F 91 H 20 106/66 08/24/19 11:06 99.6 F 98 H 20 118/70 Pulse Ox 08/25/19 08:05 98 08/25/19 04:33 97 08/24/19 23:54 98 08/24/19 22:23 08/24/19 22:22 08/24/19 22:00 97 08/24/19 19:33 08/24/19 19:13 97 08/24/19 15:52 96 08/24/19 11:06 94 - Physical Examination HEENT: Positive: PERRL, Normocephaly, Mucus Membranes Moist Neck: Positive: neck supple, trachea midline Neuro: Positive: Grossly Intact Abdomen: Negative: Tender Skin: Negative: Rash Musculoskeletal: No Pain Extremities: Absent: edema - Labs and Meds CBC 08/25/19 Range/Units 06:38 Hgb 11.0 (10.1-14.3) gm/dl Hct 33.9 (30.3-42.9) % Plt Count 217 (140-440) K/mm3 - Imaging and Cardiology EKG: report reviewed, image reviewed Echo: pending - EKG Sinus rhythms and dysrhythmias: sinus tachycardia
[2019-08-25] MEDS: LISINOPRIL 20 MG TAB PO SCH (10:07)
[2019-08-25] MEDS: carvediloL 12.5 MG TAB PO SCH ×2 (10:07→21:23)
[2019-08-25] MEDS: ASPIRIN 81 MG TAB CHEW PO SCH (10:07)
[2019-08-25] MEDS: cloNIDine 0.1 MG TAB PO SCH ×2 (10:07→21:22)
[2019-08-25] MEDS: NICOTINE 21 MG/24 HR PATCH TD SCH (11:51)
--- NOTE | 2019-08-25 15:08 | Progress Note ---
Assessment and Plan Assessment and plan: Patient is a 39-year-old [place] female with a past medical history of hypertension, congestive heart failure, diabetes, LV thrombus for which she currently is on Xarelto and is followed at [place], morbid obesity, obstructive sleep apnea, who is presenting with chest discomfort. Patient states for the p ast 2-3 days she has had some cysts central chest pain is worse with exertion and better with rest. She also reports that she has been having left arm pain independent of this chest pain and also neck pain this is aggravated by any movement to the arm and also movement to the neck. She also reports that she has had right arm pain which has been chronic. Her pain is at worst she describes a 7/10 in intensity. She appears frustrated about her clinical condition as she states that is beginning to affect her sleep. She reports that she follows up at [place] but does not feel that she is getting any significant help and feels that she has not been examined in a long time. Patient states his radiation to her left arm and neck. Patient states he took 5 nitroglycerin pills over the last day and is only getting minimal relief. She denies cough cold congestion fevers chills nausea vomiting or neck stiffness. At the time of seeing her she reports improvement in her shortness of breath but the pain in her upper arm still persists. Unstable Angina Acute on chronic systolic congestive heart failure Cardiomyopathy LV thrombus Morbid obesity Obstructive sleep apnea presumed Diabetes mellitus with hyperglycemia PLAN Continue supportive care Adjust insulin regimen Discussed with cardiology will start patient on Heparin and hold Xeralto for possible ischemic work up Diuresis Per cardiology ASA, STATIN Discuss cardiology recommendation of considering LifeVest with outpatient consideration for AICD for possible cardiac defibrillation patient verbalized understanding. Echo results pending Insulin management Pulmonary outpatient for Sleep study weightloss recommended in detail to the patient and she verablized understanding DVT/GI prophy Anticipate further ischemic work-up on Monday. Keep n.p.o. after midnight for planned procedure History Interval history: Patient seen and examined this morning resting comfortably no acute distress. She is tolerating her diet. She is requesting nicotine patch and also something for sleep. Cervical spine CT is negative and this has been discussed with the patient. No other adverse event reported to me. Hospitalist Physical - Physical exam Narrative exam: VITAL SIGNS: Reviewed. GENERAL: The patient appears normally developed, Vital signs as documented. HEAD: No signs of head trauma. EYES: Pupils are equal. Extraocular motions intact. EARS: Hearing grossly intact. MOUTH: Oropharynx is normal. NECK: No adenopathy, no JVD. CHEST: Chest with clear breath sounds bilaterally. No wheezes, rales, or rhonchi. CARDIAC: Regular rate and rhythm. S1 and S2, without murmurs, gallops, or rubs. VASCULAR: No Edema. Peripheral pulses normal and equal in all extremities. ABDOMEN: Soft, non tender and non distended. No rebound or guarding, and no masses palpated. Bowel Sounds normal. MUSCULOSKELETAL: Good range of motion of all major joints. Extremities without clubbing, cyanosis or edema. NEUROLOGIC EXAM: Alert and oriented x 3 No focal sensory or strength deficits. Speech normal. Follows commands. PSYCHIATRIC: Mood normal. SKIN: detial exam as documented in skin assessment - Constitutional Vitals: Temp Pulse Resp BP Pulse Ox 98.0 F 86 18 126/74 95 08/25/19 12:26 08/25/19 12:26 08/25/19 12:26 08/25/19 12:26 08/25/19 12:26 General appearance: Present: no acute distress Results - Labs CBC & Chem 7: 08/25/19 06:38 08/23/19 07:47 Labs: Laboratory Last Values WBC 9.2 K/mm3 (4.5-11.0) 08/23/19 07:47 RBC 4.54 M/mm3 (3.65-5.03) 08/23/19 07:47 Hgb 11.0 gm/dl (10.1-14.3) 08/25/19 06:38 Hct 33.9 % (30.3-42.9) 08/25/19 06:38 MCV 80 fl (79-97) 08/23/19 07:47 MCH 26 pg (28-32) L 08/23/19 07:47 MCHC 33 % (30-34) 08/23/19 07:47 RDW 14.4 % (13.2-15.2) 08/23/19 07:47 Plt Count 217 K/mm3 (140-440) 08/25/19 06:38 Lymph % (Auto) 31.9 % (13.4-35.0) 08/23/19 07:47 Jerome % (Auto) 5.8 % (0.0-7.3) 08/23/19 07:47 Eos % (Auto) 2.6 % (0.0-4.3) 08/23/19 07:47 Baso % (Auto) 0.8 % (0.0-1.8) 08/23/19 07:47 Lymph # 2.9 K/mm3 (1.2-5.4) 08/23/19 07:47 Jerome # 0.5 K/mm3 (0.0-0.8) 08/23/19 07:47 Eos # 0.2 K/mm3 (0.0-0.4) 08/23/19 07:47 Baso # 0.1 K/mm3 (0.0-0.1) 08/23/19 07:47 Seg Neutrophils % 58.9 % (40.0-70.0) 08/23/19 07:47 Seg Neutrophils # 5.4 K/mm3 (1.8-7.7) 08/23/19 07:47 PT 13.1 Sec. (12.2-14.9) 08/23/19 14:16 INR 0.98 (0.87-1.13) 08/23/19 14:16 APTT 25.7 Sec. (24.2-36.6) 08/23/19 14:16 Heparin Anti-Xa Level 0.34 U.I./ml (0.3-0.7) 08/23/19 20:48 Sodium 137 mmol/L (137-145) 08/23/19 07:47 Potassium 3.6 mmol/L (3.6-5.0) 08/23/19 07:47 Chloride 93.7 mmol/L (98-107) L 08/23/19 07:47 Carbon Dioxide 25 mmol/L (22-30) 08/23/19 07:47 Anion Gap 22 mmol/L 08/23/19 07:47 BUN 9 mg/dL (7-17) 08/23/19 07:47 Creatinine 0.6 mg/dL (0.7-1.2) L 08/23/19 07:47 Estimated GFR > 60 ml/min 08/23/19 07:47 BUN/Creatinine Ratio 15 % 08/23/19 07:47 Glucose 238 mg/dL (65-100) H 08/23/19 07:47 POC Glucose 251 (70-105) H 08/25/19 11:30 Calcium 9.5 mg/dL (8.4-10.2) 08/23/19 07:47 Troponin T < 0.010 ng/mL (0.00-0.029) 08/23/19 09:56 NT-Pro-B Natriuret Pep 43.05 pg/mL (0-450) 08/23/19 04:10 Triglycerides 173 mg/dL (2-149) H 08/23/19 07:47 Cholesterol 98 mg/dL (50-199) 08/23/19 07:47 LDL Cholesterol Direct 59 mg/dL (50-130) 08/23/19 07:47 HDL Cholesterol 30 mg/dL (40-59) L 08/23/19 07:47 Cholesterol/HDL Ratio 3.26 % 08/23/19 07:47 Active Medications - Current Medications Current Medications: Generic Name Dose Route Start Last Admin Trade Name Freq PRN Reason Stop Dose Admin Albuterol 2.5 mg 08/23/19 12:16 Proventil IH Q4HRT PRN Shortness Of Breath Aspirin 81 mg 08/25/19 10:00 08/25/19 10:07 Baby Aspirin PO 81 mg QDAY MONTEZ Administration Atorvastatin Calcium 40 mg 08/23/19 22:00 08/24/19 22:22 Lipitor PO 40 mg QHS MONTEZ Administration Carvedilol 12.5 mg 08/23/19 10:00 08/25/19 10:07 Coreg PO 12.5 mg BID MONTEZ Administration Clonidine HCl 0.1 mg 08/23/19 10:00 08/25/19 10:07 Catapres PO 0.1 mg BID MONTEZ Administration Dextrose 50 ml 08/23/19 07:34 D50w (25gm) Syringe IV Q30MIN PRN Hypoglycemia Protocol Insulin Human Isoph/Insulin Regular 30 unit 08/25/19 17:00 Humulin 70/30 SUB-Q BIDDIAB MONTEZ Insulin Human Lispro 0 unit 08/23/19 11:30 08/25/19 11:47 Humalog SUB-Q 6 unit ACHS MONTEZ Administration Protocol Lisinopril 20 mg 08/23/19 14:00 08/25/19 10:07 Zestril PO 20 mg QDAY MONTEZ Administration Morphine Sulfate 2 mg 08/23/19 14:00 08/25/19 08:23 Morphine IV 2 mg Q6H PRN Administration Pain, Moderate (4-6) Nicotine 21 mg 08/25/19 12:00 08/25/19 11:51 Habitrol TD 21 mg QDAY MONTEZ Administration Sodium Chloride 10 ml 08/23/19 07:31 Sodium Chloride Flush Syringe 10 Ml IV 09/02/19 07:30 PRN PRN LINE FLUSH Temazepam 15 mg 08/25/19 22:00 Restoril PO QHS MONTEZ
[2019-08-25] MEDS ORDERED: TEMAZEPAM 15 MG CAP PO SCH (22:00)
[2019-08-26] MEDS: INSULIN NPH/REGULAR 70/30 INJ SUB-Q SCH (08:00)
[2019-08-26] MEDS ORDERED: INSULIN NPH/REGULAR 70/30 INJ SUB-Q SCH (08:26)
[2019-08-26] MEDS: INSULIN LISPRO 100 UNIT/ML SUB-Q SCH ×2 (08:44→12:41)
[2019-08-26] MEDS ORDERED: REGADENOSON 0.4 MG/5 ML INJ IV ONE ×2 (09:26→09:43)
--- NOTE | 2019-08-26 10:58 | Progress Note ---
Assessment and Plan tte reviewed - EF 45-50%, mild LVH, impaired relaxation, negative bubble study, no evidence of intracardiac thrombus. Xarelto d/c'd. S/p lexiscan MPI stress test this AM which was suboptimial study, no significant ischemia noted, cannot rule out small area of reversibility in inferolateral territory. Optimize anti-ischemic regimen and consider further evaluation if chest pain reoccurs despite optimal medical therapy. Chest pain currently resolved. AMI r/o. Pt may discharge home from cardiology standpoint. Recommend pt follow up with either [facility] or in our office with Dr. Hernandez within 3-5 days of discharge ([phone]). The patient has been seen in conjunction with Dr. Mederos who agrees with the assessment and plan of care. - Patient Problems (1) Chest pain Current Visit: Yes Status: Resolved (2) Acute heart failure with preserved ejection fraction Current Visit: Yes Status: Acute (3) Hypertension Current Visit: Yes Status: Chronic (4) Diabetes Current Visit: Yes Status: Chronic (5) Sleep apnea Current Visit: Yes Status: Chronic (6) Obesity Current Visit: Yes Status: Chronic Subjective Date of service: 08/26/19 Principal diagnosis: cp; hf Interval history: pt for stress test, no current complaints. Objective Last Vital Signs Temp 98.1 F 08/26/19 05:25 Pulse 87 08/26/19 08:51 Resp 20 08/26/19 10:00 BP 139/67 08/26/19 05:25 Pulse Ox 97 08/26/19 05:25 - Physical Examination General: No Apparent Distress HEENT: Positive: PERRL, Normocephaly, Mucus Membranes Moist Neck: Positive: neck supple, trachea midline Cardiac: Positive: Reg Rate and Rhythm, S1/S2 Lungs: Positive: Decreased Breath Sounds Neuro: Positive: Grossly Intact Abdomen: Negative: Tender Skin: Negative: Rash Musculoskeletal: No Pain Extremities: Absent: edema - Imaging and Cardiology EKG: report reviewed, image reviewed Echo: report reviewed (08/2019: EF 45-50%, mild LVH, impaired relaxation, negative bubble study. ) - Telemetry EKG Rhythm: Sinus Rhythm - EKG Sinus rhythms and dysrhythmias: sinus tachycardia
--- NOTE | 2019-08-26 12:25 | Discharge Summary ---
Providers - Providers Date of Admission: 08/23/19 06:13 Attending physician: HORACE DOVE MD 08/23/19 Consult to Cardiac Rehabilitation [CONS] Routine Reason For Exam: Phase I 08/23/19 07:31 Consult to Cardiology [CONS] Routine Consulting Provider: CHRISTIANA DUMONT Reason For Exam: chest pain Primary care physician: SLASHER RUNNER Hospitalization Reason for admission: Chest pain Condition: Stable Hospital course: Patient is a 39-year-old French female with a past medical history of hypertension, congestive heart failure, diabetes, LV thrombus for which she currently is on Xarelto and is followed at [place], morbid obesity, obstructive sleep apnea, who is presenting with chest discomfort. Patient states for the past 2-3 days she has had some cysts central chest pain is worse with exertion and better with rest. She also reports that she has been having left arm pain independent of this chest pain and also neck pain this is aggravated by any movement to the arm and also movement to the neck. She also reports that she has had right arm pain which has been chronic. Her pain is at worst she describes a 7/10 in intensity. She appears frustrated about her clinical condition as she states that is beginning to affect her sleep. She reports that she follows up at [place] but does not feel that she is getting any significant help and feels that she has not been examined in a long time. Patient states his radiation to her left arm and neck. Patient states he took 5 nitroglycerin pills over the last day and is only getting minimal relief. She denies cough cold congestion fevers chills nausea vomiting or neck stiffness. At the time of seeing her she reports improvement in her shortness of breath but the pain in her upper arm still persists. patient was treated along side with cardiology, she was stared on heparin drip and stopped Xarelto due to plan for possible LHC,. she underwent tte reviewed - EF 45-50%, mild LVH, impaired relaxation, negative bubble study, no evidence of intracardiac thrombus. Xarelto d/c'd. S/p lexiscan MPI stress test this AM which was suboptimial study, no significant ischemia noted, cannot rule out small area of reversibility in inferolateral territory. Optimize anti-ischemic regimen and consider further evaluation if chest pain reoccurs despite optimal medical therapy. Chest pain currently resolved. FOLLOW WITH ORTHO OUTPATIENT due to hip pain. weight loss recommended Unstable Angina Acute on chronic systolic congestive heart failure Cardiomyopathy LV thrombus Morbid obesity Obstructive sleep apnea presumed Diabetes mellitus with hyperglycemia Disposition: DC-01 TO HOME OR SELFCARE Time spent for discharge: 35 MINS Core Measure Documentation - Palliative Care Palliative Care/ Comfort Measures: Not Applicable - Core Measures Any of the following diagnoses?: none Exam - Physical Exam Narrative exam: VITAL SIGNS: Reviewed. GENERAL: The patient appears normally developed, Vital signs as documented. HEAD: No signs of head trauma. EYES: Pupils are equal. Extraocular motions intact. EARS: Hearing grossly intact. MOUTH: Oropharynx is normal. NECK: No adenopathy, no JVD. CHEST: Chest with clear breath sounds bilaterally. No wheezes, rales, or rhonchi. CARDIAC: Regular rate and rhythm. S1 and S2, without murmurs, gallops, or rubs. VASCULAR: No Edema. Peripheral pulses normal and equal in all extremities. ABDOMEN: Soft, non tender and non distended. No rebound or guarding, and no masses palpated. Bowel Sounds normal. MUSCULOSKELETAL: Good range of motion of all major joints. Extremities without clubbing, cyanosis or edema. NEUROLOGIC EXAM: Alert and oriented x 3 No focal sensory or strength deficits. Speech normal. Follows commands. PSYCHIATRIC: Mood normal. SKIN: detial exam as documented in skin assessment - Constitutional Vitals: Temp Pulse Resp BP Pulse Ox 98.8 F 87 20 132/73 96 08/26/19 08:46 08/26/19 08:51 08/26/19 10:00 08/26/19 11:01 08/26/19 08:46 Plan Activity: advance as tolerated Diet: low fat, low salt Special Instructions: record daily BP diary, smoking cessation Follow up with: PRIMARY CARE, [Primary Care Provider] - 3-5 Days NATHALIA DOMINGUEZ MD [Staff Physician] - 7 Days JACINTA HAN MD [Staff Physician] - 7 Days Prescriptions: AtorvaSTATin [Lipitor] 40 mg PO QHS #30 tablet Aspirin [Aspirin BABY CHEW TAB] 81 mg PO QDAY #30 tab.chew ISOSORBIDE MONOnitrate [Imdur ER] 30 mg PO QDAY #30 tablet Insulin NPH/Regular [NovoLIN 70/30] 40 unit SUB-Q BIDDIAB #100 units
[2019-08-26] MEDS: ASPIRIN 81 MG TAB CHEW PO SCH (12:29)
[2019-08-26] MEDS: NICOTINE 21 MG/24 HR PATCH TD SCH (12:29)
[2019-08-26] MEDS: carvediloL 12.5 MG TAB PO SCH (12:29)
[2019-08-26] MEDS: LISINOPRIL 20 MG TAB PO SCH (12:30)
[2019-08-26] MEDS: cloNIDine 0.1 MG TAB PO SCH (12:31)
[2019-08-26 12:32] VITALS: BP 128/87
[2019-08-26] MEDS: MORPHINE 2 MG/1 ML INJ IV PRN (12:32)
--- NOTE | 2019-08-26 22:58 | Treadmill Report ---
NUCLEAR CARDIAC IMAGING INDICATION FOR PROCEDURE: Chest pain. Informed consent was obtained. DESCRIPTION OF PROCEDURE: Vasodilator stress was achieved with the intravenous administration of 0.4 mg of Lexiscan per protocol. Rest and stress nuclear cardiac imaging were performed following the intravenous administration of technetium-99m Myoview per protocol. Gated SPECT imaging demonstrates a post-stress left ventricular ejection fraction of 49%. Wall motion appears to be grossly normal. Myocardial perfusion imaging demonstrates a small mild perfusion abnormality involving the inferoapical region of the left ventricle at the mid ventricular level. This defect appears to be reversible. The study, however, is technically suboptimal. Motion artifact and the patient's habitus rendered the images somewhat suboptimal. Nuclear cardiac imaging demonstrates low normal left ventricular systolic function. There is no definite evidence for myocardial necrosis. A small area of inferolateral ischemia at the mid ventricular level appears to be present. A significant degree of ischemia is not seen. Correlate clinically. JOB# [id number] DANTE/LIANE VEGAD
== END 2019-08-26 15:17 | disposition home or self-care (01) | DRG 302 ==
LOC: ED 03:06 → OBSVTOIN 06:13 → 4A 06:13
PROVIDERS: ADMIT Internal Medicine Geriatric Medicine; ATTEND Internal Medicine
DX: I25.110 Atherosclerotic heart disease of native coronary artery with unstable angina pectoris (principal); I50.23 Acute on chronic systolic (congestive) heart failure; Z68.43 Body mass index [BMI] 50.0-59.9, adult; I42.9 Cardiomyopathy, unspecified; I11.0 Hypertensive heart disease with heart failure; J45.909 Unspecified asthma, uncomplicated; F17.210 Nicotine dependence, cigarettes, uncomplicated; E66.01 Morbid (severe) obesity due to excess calories; E78.5 Hyperlipidemia, unspecified; G47.33 Obstructive sleep apnea (adult) (pediatric); E11.65 Type 2 diabetes mellitus with hyperglycemia; I51.3 Intracardiac thrombosis, not elsewhere classified; Z88.0 Allergy status to penicillin; Z79.4 Long term (current) use of insulin
CPT/HCPCS: 36415; 71045; 72125; 78452; 80048; 80061; 82962; 83880; 84484; 85014; 85018; 85025; 85049; 85520; 85610; 85730; 87116; 90686; 93005; 93010; 93017; 93306; 94640; 99406; G0378; A9270-GY; A9502; J1644; J1815; J1940; J2270; J2785

== ENCOUNTER 2021-12-28 15:54 | Inpatient (IN) | payer MEDICAID ==
[2021-12-28] MEDS ORDERED: IPRATROPIUM/ALBUTEROL SULFATE 3 ML AMPUL.NEB IH ONE (16:26)
[2021-12-28] MEDS ORDERED: NALOXONE 0.4 MG/1 ML INJ IV ONE (16:26)
--- NOTE | 2021-12-28 16:30 | Emergency Department Report ---
ED General Adult HPI - General Chief complaint: Altered Mental Status Stated complaint: AMS/OVERDOSE Time Seen by Provider: 12/28/21 16:12 Source: EMS Mode of arrival: Stretcher Limitations: Altered Mental Status - History of Present Illness Initial comments: patient presents with complaints of AMS. Per EMS, patient's daughter found her being more somnolent and less arousable than normal. Patient unable to give much hx 2/2 to this. Patient with hx of asthma, CHF and DM2. - Related Data Home Medications Medication Instructions Recorded Confirmed Last Taken Albuterol Sulfate [Ventolin HFA] 2 puff IH TID PRN 03/11/14 12/29/21 12/27/21 AtorvaSTATin [Lipitor] 1 tab PO DAILY 08/23/19 12/29/21 12/27/21 lisinopriL [Zestril TAB] 10 mg PO QDAY 08/23/19 12/29/21 12/27/21 ALBUTEROL NEB's 3 ml INHALATION Q4HR PRN 12/04/21 12/29/21 12/27/21 Apixaban [Eliquis] 5 mg PO Q12HR 12/04/21 12/29/21 12/27/21 Ferrous Sulfate 324 MG 325 mg PO DAILY 12/04/21 12/29/21 Unknown Furosemide [Lasix] 40 mg PO DAILY 12/04/21 12/29/21 12/27/21 Insulin Glargine [Lantus VIAL] 35 units SQ DAILY 12/04/21 12/29/21 12/27/21 Insulin Lispro [Humalog] 10 unit SQ TIDAC 12/04/21 12/29/21 12/27/21 Previous Rx's Medication Instructions Recorded Last Taken Type Aspirin [Aspirin BABY CHEW TAB] 81 mg PO QDAY #30 tab.chew 08/26/19 12/27/21 Rx ALBUTEROL NEB's [Proventil 0.083% 2.5 mg IH Q4H PRN #3 inh 12/06/21 12/27/21 Rx NEBS] Albuterol Sulfate [Albuterol 0.63% 0.63 mg IH TID PRN #2 inh 12/06/21 12/27/21 Rx NEBS] ISOSORBIDE MONOnitrate [Imdur ER] 30 mg PO QDAY #30 tablet 12/06/21 Unknown Rx Montelukast [Singulair] 10 mg PO QHS #30 tablet 12/06/21 12/27/21 Rx carvediloL [Coreg] 12.5 mg PO BID #60 tablet 12/06/21 12/27/21 Rx cloNIDine [Catapres] 0.1 mg PO BID #60 tablet 12/06/21 12/27/21 Rx Allergies Allergy/AdvReac Type Severity Reaction Status Date / Time Penicillins AdvReac Dizziness Verified 12/29/21 06:56 ED Review of Systems ROS: Stated complaint: AMS/OVERDOSE Other details as noted in HPI Comment: Unobtainable due to pts medical conditions ED Past Medical Hx - Past Medical History Hx Hypertension: Yes Hx Congestive Heart Failure: Yes Hx Diabetes: Yes Hx Asthma: Yes - Surgical History Additional Surgical History: "internal bleeding in stomach; surgery x 3". - Social History Smoking Status: Current Some Day Smoker - Medications Home Medications: Home Medications Medication Instructions Recorded Confirmed Last Taken Type Albuterol Sulfate [Ventolin HFA] 2 puff IH TID PRN 03/11/14 12/29/21 12/27/21 History AtorvaSTATin [Lipitor] 1 tab PO DAILY 08/23/19 12/29/21 12/27/21 History lisinopriL [Zestril TAB] 10 mg PO QDAY 08/23/19 12/29/21 12/27/21 History Aspirin [Aspirin BABY CHEW TAB] 81 mg PO QDAY #30 tab.chew 08/26/19 12/29/21 12/27/21 Rx ALBUTEROL NEB's 3 ml INHALATION Q4HR PRN 12/04/21 12/29/21 12/27/21 History Apixaban [Eliquis] 5 mg PO Q12HR 12/04/21 12/29/21 12/27/21 History Ferrous Sulfate 324 MG 325 mg PO DAILY 12/04/21 12/29/21 Unknown History Furosemide [Lasix] 40 mg PO DAILY 12/04/21 12/29/21 12/27/21 History Insulin Glargine [Lantus VIAL] 35 units SQ DAILY 12/04/21 12/29/21 12/27/21 History Insulin Lispro [Humalog] 10 unit SQ TIDAC 12/04/21 12/29/21 12/27/21 History ALBUTEROL NEB's [Proventil 0.083% 2.5 mg IH Q4H PRN #3 inh 12/06/21 12/29/21 12/27/21 Rx NEBS] Albuterol Sulfate [Albuterol 0.63% 0.63 mg IH TID PRN #2 inh 12/06/21 12/29/21 12/27/21 Rx NEBS] ISOSORBIDE MONOnitrate [Imdur ER] 30 mg PO QDAY #30 tablet 12/06/21 12/29/21 Unknown Rx Montelukast [Singulair] 10 mg PO QHS #30 tablet 12/06/21 12/29/21 12/27/21 Rx carvediloL [Coreg] 12.5 mg PO BID #60 tablet 12/06/21 12/29/21 12/27/21 Rx cloNIDine [Catapres] 0.1 mg PO BID #60 tablet 12/06/21 12/29/21 12/27/21 Rx ED Physical Exam - General Limitations: Altered Mental Status General appearance: other (somnolent; in moderate respiratory distress) - Head Head exam: Present: atraumatic, normocephalic - Eye Eye exam: Present: PERRL, EOMI - ENT ENT exam: Present: mucous membranes moist, other (airway patent) - Neck Neck exam: Present: other (supple; no overt JVD) - Respiratory Respiratory exam: Present: other (poor air entry, prolonged expiratory phase, CTAB, no overt use of accessory muscles of respiration) - Cardiovascular Cardiovascular Exam: Present: regular rate. Absent: rubs, gallop - GI/Abdominal GI/Abdominal exam: Present: soft, normal bowel sounds. Absent: distended, guarding - Extremities Exam Extremities exam: Present: other (1+ pretibial edema, R=L; no deformity) - Back Exam Back exam: Present: other (normal alignment; no step offs) - Neurological Exam Neurological exam: Present: other (GCS 12/15 ([id number]); no gross CN palsies; moving all extremities equally) - Skin Skin exam: Present: other (induration, hyperpigmentation in left proximal lateral arm) ED Course Vital Signs 12/28/21 12/28/21 12/28/21 16:04 16:35 16:37 Temperature Pulse Rate 136 H Pulse Rate [ 122 H Bilateral Throughout] Respiratory Rate Respiratory 22 Rate [Bilateral Throughout] Blood Pressure 93/58 Blood Pressure 218/155 [Left] O2 Sat by Pulse 96 97 Oximetry 12/28/21 12/28/21 12/28/21 16:38 16:46 16:56 Temperature Pulse Rate 127 H Pulse Rate [ Bilateral Throughout] Respiratory 36 H Rate Respiratory Rate [Bilateral Throughout] Blood Pressure 93/58 111/56 Blood Pressure [Left] O2 Sat by Pulse 98 97 99 Oximetry 12/28/21 12/28/21 12/28/21 17:00 17:32 17:46 Temperature Pulse Rate Pulse Rate [ Bilateral Throughout] Respiratory Rate Respiratory Rate [Bilateral Throughout] Blood Pressure 111/56 111/56 115/65 Blood Pressure [Left] O2 Sat by Pulse 100 99 98 Oximetry 12/28/21 12/28/21 12/28/21 18:00 18:16 18:30 Temperature Pulse Rate Pulse Rate [ Bilateral Throughout] Respiratory Rate Respiratory Rate [Bilateral Throughout] Blood Pressure 107/62 107/62 96/54 Blood Pressure [Left] O2 Sat by Pulse 97 87 94 Oximetry 12/28/21 12/28/21 12/28/21 18:46 19:00 19:10 Temperature Pulse Rate Pulse Rate [ Bilateral Throughout] Respiratory Rate Respiratory Rate [Bilateral Throughout] Blood Pressure 96/54 96/54 96/54 Blood Pressure [Left] O2 Sat by Pulse 95 95 94 Oximetry 12/28/21 12/28/21 12/28/21 19:20 19:30 19:40 Temperature Pulse Rate Pulse Rate [ Bilateral Throughout] Respiratory Rate Respiratory Rate [Bilateral Throughout] Blood Pressure 96/54 96/54 96/54 Blood Pressure [Left] O2 Sat by Pulse 97 89 91 Oximetry 12/28/21 12/28/21 12/28/21 19:50 20:00 20:10 Temperature Pulse Rate Pulse Rate [ Bilateral Throughout] Respiratory Rate Respiratory Rate [Bilateral Throughout] Blood Pressure 96/54 96/54 96/54 Blood Pressure [Left] O2 Sat by Pulse 91 96 97 Oximetry 12/28/21 12/28/21 12/28/21 20:20 20:30 20:40 Temperature Pulse Rate Pulse Rate [ Bilateral Throughout] Respiratory Rate Respiratory Rate [Bilateral Throughout] Blood Pressure 96/54 96/54 96/54 Blood Pressure [Left] O2 Sat by Pulse 95 99 99 Oximetry 12/28/21 12/28/21 12/28/21 20:50 21:00 21:10 Temperature Pulse Rate Pulse Rate [ Bilateral Throughout] Respiratory Rate Respiratory Rate [Bilateral Throughout] Blood Pressure 96/54 96/54 96/54 Blood Pressure [Left] O2 Sat by Pulse 99 96 99 Oximetry 12/28/21 12/28/21 12/28/21 21:20 21:30 21:40 Temperature Pulse Rate Pulse Rate [ Bilateral Throughout] Respiratory Rate Respiratory Rate [Bilateral Throughout] Blood Pressure 96/54 96/54 96/54 Blood Pressure [Left] O2 Sat by Pulse 98 98 98 Oximetry 12/28/21 12/28/21 12/28/21 21:50 22:00 22:10 Temperature Pulse Rate Pulse Rate [ Bilateral Throughout] Respiratory Rate Respiratory Rate [Bilateral Throughout] Blood Pressure 96/54 96/54 96/54 Blood Pressure [Left] O2 Sat by Pulse 98 95 96 Oximetry 12/28/21 12/28/21 12/29/21 22:20 22:30 01:09 Temperature Pulse Rate Pulse Rate [ Bilateral Throughout] Respiratory Rate Respiratory Rate [Bilateral Throughout] Blood Pressure 96/54 96/54 107/69 Blood Pressure [Left] O2 Sat by Pulse 96 97 Oximetry 12/29/21 12/29/21 12/29/21 01:10 01:11 01:52 Temperature 98.6 F Pulse Rate 105 H Pulse Rate [ Bilateral Throughout] Respiratory 20 Rate Respiratory Rate [Bilateral Throughout] Blood Pressure 107/69 107/69 Blood Pressure 107/62 [Left] O2 Sat by Pulse 91 95 Oximetry 12/29/21 01:54 Temperature Pulse Rate 109 H Pulse Rate [ Bilateral Throughout] Respiratory Rate Respiratory Rate [Bilateral Throughout] Blood Pressure Blood Pressure [Left] O2 Sat by Pulse 95 Oximetry ED Medical Decision Making - Lab Data Result diagrams: 12/29/21 13:01 12/29/21 13:01 Laboratory Tests 12/28/21 12/28/21 12/28/21 16:34 16:46 16:46 WBC 12.5 H RBC 5.01 Hgb 11.2 Hct 37.0 MCV 74 L MCH 23 L MCHC 30 RDW 17.2 H Plt Count 270 Lymph % (Auto) 9.9 L [place] % (Auto) 6.6 Eos % (Auto) 0.2 Baso % (Auto) 0.5 Lymph # (Auto) 1.2 [place] # (Auto) 0.8 Eos # (Auto) 0.0 Baso # (Auto) 0.1 Seg Neutrophils % 82.8 H Seg Neutrophils # 10.3 H PT INR APTT ABG pH 7.270 L ABG pCO2 58.6 ABG pO2 101.7 H ABG HCO3 26.3 H ABG O2 Saturation 97.3 ABG O2 Content 15.2 ABG Base Excess -1.4 ABG Hemoglobin 11.5 L ABG Carboxyhemoglobin 3.4 ABG Methemoglobin 0.5 Oxyhemoglobin 93.4 L FiO2 36 Sodium 134 L Potassium 5.7 H Chloride 96.7 L Carbon Dioxide 21 L Anion Gap 22 BUN 11 Creatinine 1.5 H Estimated GFR 46 BUN/Creatinine Ratio 7 Glucose 393 H Lactic Acid Calcium 9.5 Total Bilirubin 0.20 AST 98 H ALT 34 Alkaline Phosphatase 79 Troponin T 0.207 H* NT-Pro-B Natriuret Pep 2452 H Total Protein 7.4 Albumin 4.2 Albumin/Globulin Ratio 1.3 Triglycerides 207 H Cholesterol 149 LDL Cholesterol Direct 89 HDL Cholesterol 35 L Cholesterol/HDL Ratio 4.25 HCG, Qual 12/28/21 12/28/21 12/28/21 16:46 16:46 18:04 WBC RBC Hgb Hct MCV MCH MCHC RDW Plt Count Lymph % (Auto) [place] % (Auto) Eos % (Auto) Baso % (Auto) Lymph # (Auto) [place] # (Auto) Eos # (Auto) Baso # (Auto) Seg Neutrophils % Seg Neutrophils # PT 14.1 INR 0.98 APTT 24.6 ABG pH ABG pCO2 ABG pO2 ABG HCO3 ABG O2 Saturation ABG O2 Content ABG Base Excess ABG Hemoglobin ABG Carboxyhemoglobin ABG Methemoglobin Oxyhemoglobin FiO2 Sodium Potassium Chloride Carbon Dioxide Anion Gap BUN Creatinine Estimated GFR BUN/Creatinine Ratio Glucose Lactic Acid 2.90 H* Calcium Total Bilirubin AST ALT Alkaline Phosphatase Troponin T NT-Pro-B Natriuret Pep Total Protein Albumin Albumin/Globulin Ratio Triglycerides Cholesterol LDL Cholesterol Direct HDL Cholesterol Cholesterol/HDL Ratio HCG, Qual Negative 12/28/21 18:15 WBC RBC Hgb Hct MCV MCH MCHC RDW Plt Count Lymph % (Auto) [place] % (Auto) Eos % (Auto) Baso % (Auto) Lymph # (Auto) [place] # (Auto) Eos # (Auto) Baso # (Auto) Seg Neutrophils % Seg Neutrophils # PT INR APTT ABG pH 7.300 L ABG pCO2 56.2 ABG pO2 57.6 L ABG HCO3 27.1 H ABG O2 Saturation 87.6 L ABG O2 Content 12.9 ABG Base Excess 0.0 ABG Hemoglobin 10.9 L ABG Carboxyhemoglobin 2.9 ABG Methemoglobin 0.6 Oxyhemoglobin 84.5 L FiO2 21 Sodium Potassium Chloride Carbon Dioxide Anion Gap BUN Creatinine Estimated GFR BUN/Creatinine Ratio Glucose Lactic Acid Calcium Total Bilirubin AST ALT Alkaline Phosphatase Troponin T NT-Pro-B Natriuret Pep Total Protein Albumin Albumin/Globulin Ratio Triglycerides Cholesterol LDL Cholesterol Direct HDL Cholesterol Cholesterol/HDL Ratio HCG, Qual CXR: no acute cardiopulmonary process CT head: no acute intracranial process EKG: HR 120, SR, nml [place], narrow QRS, mild J point depressions in V4 - V6 - Medical Decision Making Diff dz: 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 Concomitant cellulitis in L arm also likely present. Dr. Myers (resource teacher) consulted. Will see patient in consultation Patient was placed on BiPAP initially. Received narcan 0.4 mg IV x 1 and woke up to a GCS of 15/15 and AAO x 3. Denies any CP, SOB, numbness, weakness. Only complaining of pain in her L upper arm. Also received clindamycin 900 mg IV x 1, duoneb x 1. BiPAP discontinued. Patien developed welts in her skin both in her left upper extremity and remotely from the area. However, Dr. Espinoza requested a CT of the L upper extremity to "rule out toxic epidermal necrolysis". Patient received solumderol 125 mg IV x1, inuslin 6 units IV x 1, diphenhydramine 25 mg IV x 1. Rash improved. CT LUE with contrast ordered and resulted wnl. Dr. Salamanca then called to finally admit patient again. He accepted the patient. Critical care time in (mins) excluding proc time.: 45 Critical care attestation.: If time is entered above; I have spent that time in minutes in the direct care of this critically ill patient, excluding procedure time. ED Disposition Clinical Impression: Respiratory distress, Altered mental status, Cellulitis of left upper extremity, Elevated troponin Disposition: 09 ADMITTED INPATIENT Is pt being admited?: Yes Does the pt Need Aspirin: No Condition: Stable Time of Disposition: 19:30 (Patient admitted to Dr. Espinoza. Sign out was given by me to the admitting physician)
[2021-12-28 16:46] LABS: ABG Base Excess -1.4 mmol/L (-2.0-3.0); ABG HCO3 26.3 mmol/L (20.0-26.0); ABG Methemoglobin 0.5 % (0.0-1.5); ABG Oxygen Saturation 97.3 % (95.0-99.0); ABG PCO2 58.6 mm Hg; ABG PH 7.27 pH Units (7.350-7.450); ABG PO2 101.7 mm Hg (80.0-90.0)
[2021-12-28 17:47] LABS: Basophils # (Auto) 0.1 K/mm3 (0.0-0.1); Eosinophils % (Auto) 0.2 % (0.0-4.3); Monocytes # (Auto) 0.8 K/mm3 (0.0-0.8); Monocytes % (Auto) 6.6 % (0.0-7.3)
[2021-12-28 17:55] LABS: Albumin 4.2 g/dL (3.9-5); Calcium 9.5 mg/dL (8.4-10.2)
[2021-12-28 18:01] LABS: Hemoglobin 11.2 gm/dl (10.1-14.3); Lymphocytes % (Auto) 9.9 % (13.4-35.0); Mean Corpuscular HGB Conc 30 % (30-34); Mean Corpuscular Volume 74 fl (79-97); Platelet Count 270 K/mm3 (140-440); Red Blood Count 5.01 M/mm3 (3.65-5.03); Red Cell Distribution Width 17.2 % (13.2-15.2)
[2021-12-28 18:02] LABS: Basophils % (Auto) 0.5 % (0.0-1.8); Lymphocytes # (Auto) 1.2 K/mm3 (1.2-5.4)
[2021-12-28 18:04] LABS: INR 0.98 (0.87-1.13)
[2021-12-28 18:05] LABS: Partial Thromboplastin Time 24.6 Sec. (24.2-36.6)
--- NOTE | 2021-12-28 18:08 | Cat Scan Report ---
CT head/brain wo con INDICATION / CLINICAL INFORMATION: 41 years Female; AMS. TECHNIQUE: Routine CT head without contrast. All CT scans at this location are performed using CT dos e reduction for ALARA by means of automated exposure control. COMPARISON: None. FINDINGS: BRAIN / INTRACRANIAL CONTENTS: No acute hemorrhage, mass effect, midline shift, hydrocephalus, or acu te, large territorial infarct. No signs of significant atrophy or chronic infarct. No significant whi te matter abnormality seen. CRANIOCERVICAL JUNCTION: No significant abnormality. ORBITS: No significant abnormality of visualized orbits. SINUSES / MASTOIDS: Mild mucosal thickening in the ethmoids. ADDITIONAL FINDINGS: Prominent soft tissue is seen in the roof of the nasopharynx, presumably related to reactive adenoidal tissue. Please clinically correlate. IMPRESSION: 1. No focal mass, hemorrhage, hydrocephalus, or acute, large territorial infarct. Signer Name: Ascencion Garcia MD, III Signed: 12/28/2021 6:04 PM Workstation Name: [id number]
[2021-12-28 18:10] LABS: Chol/HDL Ratio 4.25 %
[2021-12-28] MEDS ORDERED: ASPIRIN 81 MG TAB CHEW PO ONE (18:20)
[2021-12-28 18:29] LABS: ABG HCO3 27.1 mmol/L (20.0-26.0); ABG Methemoglobin 0.6 % (0.0-1.5); ABG Oxygen Saturation 87.6 % (95.0-99.0); ABG PCO2 56.2 mm Hg; ABG PH 7.3 pH Units (7.350-7.450); ABG PO2 57.6 mm Hg (80.0-90.0)
--- NOTE | 2021-12-28 19:17 | XRay Report ---
LEFT HUMERUS 2 VIEWS INDICATION / CLINICAL INFORMATION: Pain in left arm. COMPARISON: None available. FINDINGS: BONES and JOINT(S): No acute fracture or subluxation. No significant arthritis. SOFT TISSUES: No significant abnormality. ADDITIONAL FINDINGS: None. IMPRESSION: 1. No acute findings. Signer Name: Aroldo Trujillo MD Signed: 12/28/2021 7:12 PM Workstation Name: [id number]
--- NOTE | 2021-12-28 19:18 | XRay Report ---
CHEST 1 VIEW 12/28/2021 6:05 PM INDICATION / CLINICAL INFORMATION: AMS; respiratory distress. COMPARISON: None available. FINDINGS: SUPPORT DEVICES: One view of the chest from 12/04/2021. HEART / MEDIASTINUM: There is persistent cardiomegaly, which has slightly worsened. No other signific ant abnormality. LUNGS / PLEURA: No significant pulmonary abnormality. No significant pleural effusion. No pneumothora x. ADDITIONAL FINDINGS: No significant additional findings. IMPRESSION: 1. Slightly worse cardiomegaly without other acute findings. Signer Name: Aroldo Trujillo MD Signed: 12/28/2021 7:14 PM Workstation Name: [id number]
--- NOTE | 2021-12-28 19:56 | Event Note ---
Date: 12/28/21 Pt seen and evaluated and found to have LUE edema and sloughing of the epidermis. Pending CT as per ED physician. Pt workup pending completion at this time.
[2021-12-28] MEDS ORDERED: methylPREDNISolone Sod Succinate 125 MG/2 ML INJ IV ONE (20:40)
[2021-12-28] MEDS ORDERED: INSULIN REGULAR, HUMAN 100 UNITS/1 ML IV ONE (20:40)
[2021-12-28] MEDS ORDERED: diphenhydrAMINE 50 MG/ML VIAL IV ONE (20:40)
--- NOTE | 2021-12-28 23:27 | Cat Scan Report ---
CT upper extrem LT w con INDICATION / CLINICAL INFORMATION: Edema and pain in left arm COMPARISON: None available. CT of the left humerus was performed without administration of intravenous contrast. In addition to a xial source images, coronal and sagittal MPR series were provided. All CT scans at this location are performed using CT dose reduction for ALARA by means of automated exposure control. FINDINGS: The included osseous structure of the left scapula, glenohumeral joint, proximal left humerus demonst rate no acute findings. Incidental note made of os acromiale. The included soft tissues demonstrate no acute findings. IMPRESSION: 1. No acute pathology. Signer Name: Ej Perdue II, MD Signed: 12/28/2021 11:23 PM Workstation Name: [id number]
[2021-12-29 00:19] LABS: Bilirubin,Urine NEG (Negative); Blood,Urine NEG (Negative); Color,Urine Yellow (Yellow); Mucus,Urine 2+ /HPF; Urobilinogen,Urine < 2.0 mg/dL (<2.0)
[2021-12-29 00:37] LABS: Amphetamine Screen,Urine PRESUMPTIVE NEGATIVE; Benzodiazepines Screen,Urine PRESUMPTIVE NEGATIVE; Cannabinoid Screen,Urine PRESUMPTIVE POSITIVE; Cocaine Screen,Urine PRESUMPTIVE POSITIVE; Methadone Screen,Urine PRESUMPTIVE NEGATIVE; Opiate Screen,Urine PRESUMPTIVE NEGATIVE
[2021-12-29] MEDS ORDERED: NITROGLYCERIN 0.4 MG TAB SUBL SL PRN (00:47)
[2021-12-29] MEDS ORDERED: traMADol 50 MG TAB PO PRN (00:47)
[2021-12-29] MEDS ORDERED: ALBUTEROL 2.5 MG/3 ML NEBU IH PRN (00:47)
[2021-12-29] MEDS ORDERED: ACETAMINOPHEN 325 MG TAB PO PRN ×2 (00:47)
[2021-12-29] MEDS ORDERED: HYDROmorphone 1 MG/1 ML INJ IV PRN (00:47)
[2021-12-29] MEDS ORDERED: ONDANSETRON 4 MG/2 ML INJ IV PRN (00:47)
--- NOTE | 2021-12-29 00:58 | History and Physical Report ---
History of Present Illness Date of examination: 12/29/21 Date of admission: 12/29/21 Chief complaint: Altered mental status History of present illness: 41 years old female with history of asthma, CHF, diabetes type 2 was brought to the emergency room with complaints of AMS. Per EMS, patient's daughter found her being more somnolent and less arousable than normal. Patient unable to give much hx 2/2 to this. Patient is altered mental status secondary to recreational drug abuse with consequential medullary depression and coronary vasospasm superimposed on asthma and obesity hypoventilation syndrome. Concomitant cellulitis in L arm also likely present. Patient was placed on BiPAP initially. Received narcan 0.4 mg IV x 1 and woke up to a GCS of 15/15 and AAO x 3. Denies any CP, SOB, numbness, weakness. Only complaining of pain in her L upper arm.CXR: no acute cardiopulmonary process CT head: no acute intracranial process . CT LUE with contrast ordered and r esulted wnl. Patient lactic acid is 2.90 and troponin is 0.207 so going to admit the patient we will put the patient on chest pain pathway consult cardiology. We also put the patient on IV fluid and antibiotic Past History Past Medical History: COPD, diabetes, heart failure, hypertension Past Surgical History: Other ("internal bleeding in stomach; surgery x 3". c- section) Social history: smoking Family history: diabetes Medications and Allergies Allergies Allergy/AdvReac Type Severity Reaction Status Date / Time Penicillins Allergy Dizziness Verified 12/28/21 16:07 Home Medications Medication Instructions Recorded Confirmed Last Taken Type Albuterol Sulfate [Ventolin HFA] 2 puff IH TID PRN 03/11/14 12/04/21 03/11/14 08:00 History AtorvaSTATin [Lipitor] 1 tab PO DAILY 08/23/19 12/04/21 Unknown History lisinopriL [Zestril TAB] 10 mg PO QDAY 08/23/19 12/04/21 Unknown History Aspirin [Aspirin BABY CHEW TAB] 81 mg PO QDAY #30 tab.chew 08/26/19 12/04/21 Unknown Rx ALBUTEROL NEB's 3 ml INHALATION Q4HR PRN 12/04/21 12/04/21 Unknown History Apixaban [Eliquis] 5 mg PO Q12HR 12/04/21 12/04/21 Unknown History Ferrous Sulfate 324 MG 325 mg PO DAILY 12/04/21 12/04/21 Unknown History Furosemide [Lasix] 40 mg PO DAILY 12/04/21 12/04/21 Unknown History Insulin Glargine [Lantus VIAL] 35 units SQ DAILY 12/04/21 12/04/21 Unknown History Insulin Lispro [Humalog] 10 unit SQ TIDAC 12/04/21 12/04/21 Unknown History ALBUTEROL NEB's [Proventil 0.083% 2.5 mg IH Q4H PRN #3 inh 12/06/21 Unknown Rx NEBS] Albuterol Sulfate [Albuterol 0.63% 0.63 mg IH TID PRN #2 inh 12/06/21 Unknown Rx NEBS] ISOSORBIDE MONOnitrate [Imdur ER] 30 mg PO QDAY #30 tablet 12/06/21 Unknown Rx Montelukast [Singulair] 10 mg PO QHS #30 tablet 12/06/21 Unknown Rx carvediloL [Coreg] 12.5 mg PO BID #60 tablet 12/06/21 Unknown Rx cloNIDine [Catapres] 0.1 mg PO BID #60 tablet 12/06/21 Unknown Rx Active Meds: Active Medications Acetaminophen (Acetaminophen 325 Mg Tab) 650 mg PO Q4H PRN PRN Reason: Pain MILD(1-3)/Fever >100.5/[place] Acetaminophen (Acetaminophen 325 Mg Tab) 650 mg PO Q6H PRN PRN Reason: Pain, Mild (1-3) Albuterol (Albuterol 2.5 Mg/3 Ml Nebu) 2.5 mg IH Q3HRT PRN PRN Reason: Shortness Of Breath Albuterol/Ipratropium (Ipratropium/Albuterol Sulfate 3 Ml Ampul.Neb) 1 ampul IH Q6HRT [facility] Aspirin (Aspirin Ec 325 Mg Tab) 325 mg PO QDAY [facility] Aspirin (Aspirin 81 Mg Tab Chew) 81 mg PO QDAY [facility] Atorvastatin Calcium (Atorvastatin 40 Mg Tab) 40 mg PO QHS [facility] Carvedilol (Carvedilol 12.5 Mg Tab) 12.5 mg PO BID [facility] Clonidine HCl (Clonidine 0.1 Mg Tab) 0.1 mg PO BID [facility] Famotidine (Famotidine 20 Mg Tab) 20 mg PO BID [facility] Furosemide (Furosemide 40 Mg Tab) [address] [facility] Hydromorphone HCl (Hydromorphone 1 Mg/1 Ml Inj) 0.5 mg IV Q3H PRN PRN Reason: Pain , Severe (7-10) Sodium Chloride (Nacl 0.45% 1000 Ml) 1,000 mls @ 75 mls/hr IV DIRECT [facility] Levofloxacin/Dextrose (Levaquin 750mg/150ml) 750 mg in 150 mls @ 100 mls/hr IV Q24H [facility]; Protocol Insulin Glargine (Insulin Glargine 100 Units/Ml) 35 units SUB-Q DAILY [facility] Isosorbide Mononitrate (Isosorbide Mononitrate Er 30 Mg Tab) [address] [facility] Lisinopril (Lisinopril 10 Mg Tab) [address] [facility] Miscellaneous Medication (Apixaban) [address] [facility] Miscellaneous Medication (Ferrous Sulfate 324 Mg) [address] [facility] Morphine Sulfate (Morphine 2 Mg/1 Ml Inj) 2 mg IV Q4H PRN PRN Reason: Pain, Moderate (4-6) Nitroglycerin (Nitroglycerin 0.4 Mg Tab Subl) 0.4 mg SL Q5M PRN PRN Reason: Chest Pain Ondansetron HCl (Ondansetron 4 Mg/2 Ml Inj) 4 mg IV Q8H PRN PRN Reason: Nausea And Vomiting Sodium Chloride (Sodium Chloride 0.9% 10 Ml Flush Syringe) [address] [facility] Sodium Chloride (Sodium Chloride 0.9% 10 Ml Flush Syringe) 10 ml IV PRN PRN PRN Reason: LINE FLUSH Sodium Chloride (Sodium Chloride 0.9% 10 Ml Flush Syringe) 10 ml IV PRN PRN PRN Reason: LINE FLUSH Tramadol HCl (Tramadol 50 Mg Tab) 50 mg PO Q6H PRN PRN Reason: Pain, Moderate (4-6) Review of Systems All systems: negative Constitutional: malaise, lethargy, other (Altered mental status, drug overdose) Exam - Constitutional Vitals: Temp Pulse Resp BP Pulse Ox 127 H 36 H 96/54 95 12/28/21 16:56 12/28/21 16:56 12/28/21 18:46 12/28/21 18:46 General appearance: Present: no acute distress, well-nourished - EENT Eyes: Present: PERRL ENT: hearing intact, clear oral mucosa - Neck Neck: Present: supple, normal ROM - Respiratory Respiratory effort: normal Respiratory: bilateral: diminished - Cardiovascular Heart Sounds: Present: S1 & S2. Absent: rub, click - Extremities Extremities: pulses symmetrical, No edema Extremity abnormal: edema (Cellulitis of the left upper extremity), erythema, other Peripheral Pulses: within normal limits - Abdominal General gastrointestinal: Present: soft, non-tender, non-distended, normal bowel sounds Female genitourinary: Present: normal - Integumentary Integumentary: Present: clear, warm, dry - Musculoskeletal Musculoskeletal: gait normal, strength equal bilaterally - Psychiatric Psychiatric: appropriate mood/affect, intact judgment & insight - Neurologic Neurologic: CNII-XII intact, moves all extremities HEART Score - HEART Score Troponin: Troponin T 0.207 ng/mL (0.00-0.029) H* 12/28/21 16:46 Results - Labs CBC & Chem 7: 12/28/21 16:46 12/28/21 16:46 Labs: Laboratory Last Values WBC 12.5 K/mm3 (4.5-11.0) H 12/28/21 16:46 RBC 5.01 M/mm3 (3.65-5.03) 12/28/21 16:46 Hgb 11.2 gm/dl (10.1-14.3) 12/28/21 16:46 Hct 37.0 % (30.3-42.9) 12/28/21 16:46 MCV 74 fl (79-97) L 12/28/21 16:46 MCH 23 pg (28-32) L 12/28/21 16:46 MCHC 30 % (30-34) 12/28/21 16:46 RDW 17.2 % (13.2-15.2) H 12/28/21 16:46 Plt Count 270 K/mm3 (140-440) 12/28/21 16:46 Lymph % (Auto) 9.9 % (13.4-35.0) L 12/28/21 16:46 Logan % (Auto) 6.6 % (0.0-7.3) 12/28/21 16:46 Eos % (Auto) 0.2 % (0.0-4.3) 12/28/21 16:46 Baso % (Auto) 0.5 % (0.0-1.8) 12/28/21 16:46 Lymph # (Auto) 1.2 K/mm3 (1.2-5.4) 12/28/21 16:46 [place] # (Auto) 0.8 K/mm3 (0.0-0.8) 12/28/21 16:46 Eos # (Auto) 0.0 K/mm3 (0.0-0.4) 12/28/21 16:46 Baso # (Auto) 0.1 K/mm3 (0.0-0.1) 12/28/21 16:46 Seg Neutrophils % 82.8 % (40.0-70.0) H 12/28/21 16:46 Seg Neutrophils # 10.3 K/mm3 (1.8-7.7) H 12/28/21 16:46 PT 14.1 Sec. (12.2-14.9) 12/28/21 16:46 INR 0.98 (0.87-1.13) 12/28/21 16:46 APTT 24.6 Sec. (24.2-36.6) 12/28/21 16:46 ABG pH 7.300 pH Units (7.350-7.450) L 12/28/21 18:15 ABG pCO2 56.2 mm Hg 12/28/21 18:15 ABG pO2 57.6 mm Hg (80.0-90.0) L 12/28/21 18:15 ABG HCO3 27.1 mmol/L (20.0-26.0) H 12/28/21 18:15 ABG O2 Saturation 87.6 % (95.0-99.0) L 12/28/21 18:15 ABG O2 Content 12.9 (0.0-44) 12/28/21 18:15 ABG Base Excess 0.0 mmol/L (-2.0-3.0) 12/28/21 18:15 ABG Hemoglobin 10.9 gm/dl (12.0-16.0) L 12/28/21 18:15 ABG Carboxyhemoglobin 2.9 % (0.0-5.0) 12/28/21 18:15 ABG Methemoglobin 0.6 % (0.0-1.5) 12/28/21 18:15 Oxyhemoglobin 84.5 % (95.0-99.0) L 12/28/21 18:15 FiO2 21 % 12/28/21 18:15 Sodium 134 mmol/L (137-145) L 12/28/21 16:46 Potassium 5.7 mmol/L (3.6-5.0) H 12/28/21 16:46 Chloride 96.7 mmol/L (98-107) L 12/28/21 16:46 Carbon Dioxide 21 mmol/L (22-30) L 12/28/21 16:46 Anion Gap 22 mmol/L 12/28/21 16:46 BUN 11 mg/dL (7-17) 12/28/21 16:46 Creatinine 1.5 mg/dL (0.6-1.2) H 12/28/21 16:46 Estimated GFR 46 ml/min 12/28/21 16:46 BUN/Creatinine Ratio 7 % 12/28/21 16:46 Glucose 393 mg/dL (65-100) H 12/28/21 16:46 Lactic Acid 2.90 mmol/L (0.7-2.0) H* 12/28/21 18:04 Calcium 9.5 mg/dL (8.4-10.2) 12/28/21 16:46 Total Bilirubin 0.20 mg/dL (0.1-1.2) 12/28/21 16:46 AST 98 units/L (5-40) H 12/28/21 16:46 ALT 34 units/L (7-56) 12/28/21 16:46 Alkaline Phosphatase 79 units/L (35-129) 12/28/21 16:46 Troponin T 0.207 ng/mL (0.00-0.029) H* 12/28/21 16:46 NT-Pro-B Natriuret Pep 2452 pg/mL (0-450) H 12/28/21 16:46 Total Protein 7.4 g/dL (6.3-8.2) 12/28/21 16:46 Albumin 4.2 g/dL (3.9-5) 12/28/21 16:46 Albumin/Globulin Ratio 1.3 % 12/28/21 16:46 Triglycerides 207 mg/dL (2-149) H 12/28/21 16:46 Cholesterol 149 mg/dL (50-199) 12/28/21 16:46 LDL Cholesterol Direct 89 mg/dL (50-130) 12/28/21 16:46 HDL Cholesterol 35 mg/dL (40-59) L 12/28/21 16:46 Cholesterol/HDL Ratio 4.25 % 12/28/21 16:46 HCG, Qual Negative (Negative) 12/28/21 16:46 Urine Color Yellow (Yellow) 12/28/21 23:39 Urine Turbidity Cloudy (Clear) 12/28/21 23:39 Urine pH 5.0 (5.0-7.0) 12/28/21 23:39 Ur Specific [place] 1.037 (1.003-1.030) H 12/28/21 23:39 Urine Protein 100 mg/dl mg/dL (Negative) 12/28/21 23:39 Urine Glucose (UA) >=500 mg/dL (Negative) 12/28/21 23:39 Urine Ketones Neg mg/dL (Negative) 12/28/21 23:39 Urine Blood Neg (Negative) 12/28/21 23:39 Urine Nitrite Neg (Negative) 12/28/21 23:39 Urine Bilirubin Neg (Negative) 12/28/21 23:39 Urine Urobilinogen < 2.0 mg/dL (<2.0) 12/28/21 23:39 Ur Leukocyte Esterase Mod (Negative) 12/28/21 23:39 Urine WBC (Auto) 39.0 /HPF (0.0-6.0) H 12/28/21 23:39 Urine RBC (Auto) 13.0 /HPF (0.0-6.0) 12/28/21 23:39 U Epithel Cells (Auto) 37.0 /HPF (0-13.0) H 12/28/21 23:39 Urine Mucus 2+ /HPF 12/28/21 23:39 Urine Yeast (Budding) Few /HPF 12/28/21 23:39 Urine Opiates Screen Presumptive negative 12/28/21 23:39 Urine Methadone Screen Presumptive negative 12/28/21 23:39 Ur Barbiturates Screen Presumptive negative 12/28/21 23:39 Ur Phencyclidine Scrn Presumptive negative 12/28/21 23:39 Ur Amphetamines Screen Presumptive negative 12/28/21 23:39 U Benzodiazepines Scrn Presumptive negative 12/28/21 23:39 Urine Cocaine Screen Presumptive positive 12/28/21 23:39 U Marijuana (THC) Screen Presumptive positive 12/28/21 23:39 Microbiology: Microbiology 12/28/21 18:04 Peripheral/Venous Blood Culture - Preliminary Culture in Progress 12/28/21 18:04 Peripheral/Venous Blood Culture - Preliminary Culture in Progress - Imaging and Cardiology Chest x-ray: report reviewed CT Scan - head: report reviewed Assessment and Plan VTE prophylaxis?: Chemical Plan of care discussed with patient/family: Yes - Patient Problems (1) Acute respiratory failure Current Visit: No Status: Acute Plan to address problem: Admit the patient to the medical telemetry. Altered mental status secondary to respiratory failure, drug overdose. Oxygen by nasal catheter per minute. DuoNeb nebulizer every 4 hours as needed. Albuterol via nebulizer every 4 hours to be. We will monitor the patient closely (2) Elevated troponin Current Visit: Yes Status: Acute Plan to address problem: Put the patient on chest pain pathway. Aspirin 81 mg p.o. daily. Nitroglycerin as needed. Lipitor 40 mg p.o. daily. Eliquis 5 mg p.o. twice daily. Echocardiogram. Serial cardiac enzymes. Cardiology evaluation (3) Altered mental status Current Visit: Yes Status: Acute Plan to address problem: Altered mental status secondary to respiratory failure, drug overdose. Oxygen by nasal catheter per minute. DuoNeb nebulizer every 4 hours as needed. Albuterol via nebulizer every 4 hours to be. We will monitor the patient closely (4) Cellulitis of left upper extremity Current Visit: Yes Status: Acute Plan to address problem: Levaquin 750 mg IV daily. Patient is allergic to penicillin and most likely clindamycin. Will consult wound care evaluation (5) Diabetes Current Visit: No Status: Chronic Plan to address problem: Humalog sliding scale with moderate dose coverage. Diabetic education. Recheck BMP in the (6) Acute heart failure with preserved ejection fraction Current Visit: No Status: Acute Plan to address problem: Stable. We will continue the home medication. Echocardiogram. Cardiology evaluation (7) Hypertension Current Visit: No Status: Chronic Plan to address problem: Hydralazine 10 mg IV every 6 hours as needed. Lisinopril 10 mg p.o. daily. we continue the home medication. (8) Obesity Current Visit: No Status: Chronic Plan to address problem: We counseled the patient regarding weight reduction. (9) Elevated lactic acid level Current Visit: Yes Status: Acute Plan to address problem: Half-normal saline at the rate of 75 cc/h. Levaquin 750 mg IV daily. We will recheck the lactic acid (10) DVT prophylaxis Current Visit: Yes Status: Acute Plan to address problem: Eliquis 5 mg p.o. twice daily for DVT prophylaxis. Pepcid 20 mg p.o. twice daily for GI prophylaxis. Patient is a full code
[2021-12-29] MEDS ORDERED: SODIUM CHLORIDE 0.45% 1000 ML 1,000 ML IV SCH (01:00)
[2021-12-29] MEDS: MORPHINE 2 MG/1 ML INJ IV PRN ×5 (03:04→21:54)
[2021-12-29] MEDS: IPRATROPIUM/ALBUTEROL SULFATE 3 ML AMPUL.NEB IH SCH ×4 (04:26→21:17)
[2021-12-29 06:30] LABS: Hematocrit 35.5 % (30.3-42.9); Hemoglobin 10.9 gm/dl (10.1-14.3); Mean Corpuscular HGB Conc 31 % (30-34); Mean Corpuscular Volume 73 fl (79-97); Platelet Count 244 K/mm3 (140-440); Red Cell Distribution Width 17.1 % (13.2-15.2)
[2021-12-29 07:00] LABS: BUN/Creatinine Ratio 16; Blood Urea Nitrogen 13 mg/dL (7-17); Calcium 9.5 mg/dL (8.4-10.2); Hemolysis Index 38
[2021-12-29 09:30] LABS: Basophils % (Manual) 0 % (0.0-1.8); Eosinophils % (Manual) 0 % (0.0-4.3); Hypochromasia 1+; Total Cells Counted 100
[2021-12-29 09:31] LABS: Giant Platelets Few; Platelet Estimate Consistent w Auto
[2021-12-29] MEDS ORDERED: LISINOPRIL 10 MG TAB PO SCH (10:00)
[2021-12-29] MEDS ORDERED: carvediloL 12.5 MG TAB PO SCH (10:00)
[2021-12-29] MEDS ORDERED: cloNIDine 0.1 MG TAB PO SCH (10:00)
[2021-12-29] MEDS ORDERED: APIXABAN 5 MG TAB PO SCH ×2 (10:00→13:00)
[2021-12-29] MEDS ORDERED: INSULIN GLARGINE 100 UNITS/ML SUB-Q SCH (10:00)
[2021-12-29] MEDS ORDERED: FERROUS SULFATE PO SCH (10:00)
[2021-12-29] MEDS: FERROUS SULFATE 325 MG TAB PO SCH (10:00)
[2021-12-29] MEDS ORDERED: NON-FORMULARY EACH (Apixaban 5 MG Tablet) PO SCH (10:00)
[2021-12-29] MEDS: FAMOTIDINE 20 MG TAB PO SCH ×2 (10:01→21:51)
[2021-12-29] MEDS: ASPIRIN 81 MG TAB CHEW PO SCH (10:01)
[2021-12-29] MEDS: FUROSEMIDE 40 MG TAB PO SCH (10:01)
--- NOTE | 2021-12-29 10:58 | Electrocardiograph Report ---
[facility] Test Date: 2021-12-28 Test Time: 16:33:58 Pat Name: SHANTELLE SCOTT Department: Room: A472 1 Gender: F Reception Specialist: MENG : [id number] Requested By: RASHI PATEL Order Number: [id number] Reading MD: Willie Myers Measurements Intervals [place] Rate: 121 P: 65 LA: 148 QRS: 3 QRSD: 81 T: 64 QT: 331 QTc: 470 Interpretive Statements Sinus tachycardia Compared to ECG 12/04/2021 09:34:45 Sinus rhythm no longer present Left ventricular hypertrophy no longer present T-wave abnormality no longer present Electronically Signed On 12-29-2021 10:58:28 EDT by Willie Myers
[2021-12-29] MEDS: carvediloL 12.5 MG TAB PO SCH ×2 (12:20→21:50)
--- NOTE | 2021-12-29 12:28 | Consultation ---
History of Present Illness Consult date: 12/29/21 Requesting physician: BOB SINGH Consult reason: chest pain History of present illness: his patient is a 41-year-old female with significant history of heart failure with unknown EF, asthma, type 2 diabetes. Patient was previously unknown to our practice. She presents to [facility] ER with chief complaint of somnolence since, altered mental status. Patient was subsequently found to have positive urine drug screen for cocaine and THC as well as elevated troponins consistent with NSTEMI. She was given Narcan 0.4 mg IV x1 and became arousable with a GCS of 15 and alert and oriented. ER work-up revealed negative head CT, negative CT of her upper left extremity, of which she was complaining of pain. Cardiology is consulted for chest pain. EKG shows sinus tach heart rate 121 with no acute ischemic changes. Past History Past Medical History: COPD, diabetes, heart failure, hypertension, other (Substance abuse) Past Surgical History: Other ("internal bleeding in stomach; surgery x 3". c- section) Social history: smoking Family history: diabetes Medications and Allergies Allergies Allergy/AdvReac Type Severity Reaction Status Date / Time Penicillins AdvReac Dizziness Verified 12/29/21 06:56 Home Medications Medication Instructions Recorded Confirmed Last Taken Type Albuterol Sulfate [Ventolin HFA] 2 puff IH TID PRN 03/11/14 12/29/21 12/27/21 History AtorvaSTATin [Lipitor] 1 tab PO DAILY 08/23/19 12/29/21 12/27/21 History lisinopriL [Zestril TAB] 10 mg PO QDAY 08/23/19 12/29/21 12/27/21 History Aspirin [Aspirin BABY CHEW TAB] 81 mg PO QDAY #30 tab.chew 08/26/19 12/29/21 12/27/21 Rx ALBUTEROL NEB's 3 ml INHALATION Q4HR PRN 12/04/21 12/29/21 12/27/21 History Apixaban [Eliquis] 5 mg PO Q12HR 12/04/21 12/29/21 12/27/21 History Ferrous Sulfate 324 MG 325 mg PO DAILY 12/04/21 12/29/21 Unknown History Furosemide [Lasix] 40 mg PO DAILY 12/04/21 12/29/21 12/27/21 History Insulin Glargine [Lantus VIAL] 35 units SQ DAILY 12/04/21 12/29/21 12/27/21 History Insulin Lispro [Humalog] 10 unit SQ TIDAC 12/04/21 12/29/21 12/27/21 History ALBUTEROL NEB's [Proventil 0.083% 2.5 mg IH Q4H PRN #3 inh 12/06/21 12/29/21 12/27/21 Rx NEBS] Albuterol Sulfate [Albuterol 0.63% 0.63 mg IH TID PRN #2 inh 12/06/21 12/29/21 12/27/21 Rx NEBS] ISOSORBIDE MONOnitrate [Imdur ER] 30 mg PO QDAY #30 tablet 12/06/21 12/29/21 Unknown Rx Montelukast [Singulair] 10 mg PO QHS #30 tablet 12/06/21 12/29/21 12/27/21 Rx carvediloL [Coreg] 12.5 mg PO BID #60 tablet 12/06/21 12/29/21 12/27/21 Rx cloNIDine [Catapres] 0.1 mg PO BID #60 tablet 12/06/21 12/29/21 12/27/21 Rx Active Meds: Active Medications Acetaminophen (Acetaminophen 325 Mg Tab) 650 mg PO Q4H PRN PRN Reason: Pain MILD(1-3)/Fever >100.5/[place] Albuterol (Albuterol 2.5 Mg/3 Ml Nebu) 2.5 mg IH Q3HRT PRN PRN Reason: Shortness Of Breath Albuterol/Ipratropium (Ipratropium/Albuterol Sulfate 3 Ml Ampul.Neb) 1 ampul IH Q6HRT [facility] Last Admin: 12/29/21 09:03 Dose: Not Given Aspirin (Aspirin 81 Mg Tab Chew) 81 mg PO QDAY [facility] Last Admin: 12/29/21 10:01 Dose: 81 mg Atorvastatin Calcium (Atorvastatin 40 Mg Tab) 40 mg PO QHS [facility] Carvedilol (Carvedilol 12.5 Mg Tab) 12.5 mg PO BID [facility] Last Admin: 12/29/21 12:20 Dose: 12.5 mg Famotidine (Famotidine 20 Mg Tab) 20 mg PO BID [facility] Last Admin: 12/29/21 10:01 Dose: 20 mg Ferrous Sulfate (Ferrous Sulfate 325 Mg Tab) 325 mg PO DAILY [facility] Last Admin: 12/29/21 10:00 Dose: 325 mg Furosemide (Furosemide 40 Mg Tab) 40 mg PO DAILY [facility] Last Admin: 12/29/21 10:01 Dose: 40 mg Hydromorphone HCl (Hydromorphone 1 Mg/1 Ml Inj) 0.5 mg IV Q3H PRN PRN Reason: Pain , Severe (7-10) Insulin Glargine (Insulin Glargine 100 Units/Ml) 35 units SUB-Q DAILY [facility] Last Admin: 12/29/21 09:59 Dose: 35 units Isosorbide Mononitrate (Isosorbide Mononitrate Er 30 Mg Tab) 30 mg PO QDAY [facility] Last Admin: 12/29/21 10:01 Dose: 30 mg Lisinopril (Lisinopril 10 Mg Tab) 10 mg PO BID [facility] Morphine Sulfate (Morphine 2 Mg/1 Ml Inj) 2 mg IV Q4H PRN PRN Reason: Pain, Moderate (4-6) Last Admin: 12/29/21 12:20 Dose: 2 mg Nitroglycerin (Nitroglycerin 0.4 Mg Tab Subl) 0.4 mg SL Q5M PRN PRN Reason: Chest Pain Ondansetron HCl (Ondansetron 4 Mg/2 Ml Inj) 4 mg IV Q8H PRN PRN Reason: Nausea And Vomiting Sodium Chloride (Sodium Chloride 0.9% 10 Ml Flush Syringe) 10 ml IV BID [facility] Last Admin: 12/29/21 10:02 Dose: 10 ml Sodium Chloride (Sodium Chloride 0.9% 10 Ml Flush Syringe) 10 ml IV PRN PRN PRN Reason: LINE FLUSH Tramadol HCl (Tramadol 50 Mg Tab) 50 mg PO Q6H PRN PRN Reason: Pain, Moderate (4-6) Review of Systems Constitutional: no weight loss, no weight gain, no fever, no chills, no sweats, no night sweats Ears, nose, mouth and throat: no ear pain, no ear discharge, no decreased hearing, no nose pain, no nasal congestion, no nasal discharge, no sinus pressure, no sinus pain Cardiovascular: chest pain, no orthopnea, no palpitations, no rapid/irregular heart beat, no edema, no syncope, no lightheadedness, no shortness of breath Respiratory: no cough, no cough with sputum, no excessive sputum, no hemoptysis, no shortness of breath, no dyspnea on exertion Gastrointestinal: no abdominal pain, no nausea, no vomiting, no diarrhea, no constipation Musculoskeletal: no neck stiffness, no neck pain, no shooting arm pain, no arm numbness/tingling, no low back pain, no shooting leg pain Integumentary: no rash, no pruritis, no redness, no sores, no wounds, no jaundice Neurological: no head injury, no paralysis, no weakness, no parathesias, no numbness, no tingling, no seizures, no syncope Psychiatric: no anxiety, no memory loss Endocrine: no cold intolerance, no heat intolerance Hematologic/Lymphatic: no easy bruising, no easy bleeding Allergic/Immunologic: no urticaria Physical Examination Last Vital Signs Temp 97.8 F 12/29/21 11:21 Pulse 103 H 12/29/21 11:21 Resp 18 12/29/21 11:21 BP 122/70 12/29/21 11:21 Pulse Ox 95 12/29/21 11:21 HEENT: Positive: PERRL Neck: Positive: neck supple, trachea midline Cardiac: Positive: Reg Rate and Rhythm Lungs: Positive: Normal Exam Neuro: Positive: Grossly Intact Abdomen: Positive: Unremarkable Skin: Negative: Rash, Wound Extremities: Present: normal. Absent: edema Results 12/29/21 06:02 12/29/21 06:02 Cardiac Enzymes 12/28/21 Range/Units 16:46 AST 98 H (5-40) units/L Coagulation 12/28/21 Range/Units 16:46 PT 14.1 (12.2-14.9) Sec. INR 0.98 (0.87-1.13) APTT 24.6 (24.2-36.6) Sec. Lipids 12/28/21 Range/Units 16:46 Triglycerides 207 H (2-149) mg/dL Cholesterol 149 (50-199) mg/dL HDL Cholesterol 35 L (40-59) mg/dL Cholesterol/HDL Ratio 4.25 % CBC 12/28/21 12/29/21 Range/Units 16:46 06:02 WBC 12.5 H 11.0 (4.5-11.0) K/mm3 RBC 5.01 4.90 (3.65-5.03) M/mm3 Hgb 11.2 10.9 (10.1-14.3) gm/dl Hct 37.0 35.5 (30.3-42.9) % Plt Count 270 244 (140-440) K/mm3 Lymph # (Auto) 1.2 (1.2-5.4) K/mm3 [place] # (Auto) 0.8 (0.0-0.8) K/mm3 Eos # (Auto) 0.0 (0.0-0.4) K/mm3 Baso # (Auto) 0.1 (0.0-0.1) K/mm3 Comprehensive Metabolic Panel 12/28/21 12/29/21 Range/Units 16:46 06:02 Sodium 134 L 132 L (137-145) mmol/L Potassium 5.7 H 4.7 (3.6-5.0) mmol/L Chloride 96.7 L 93.9 L (98-107) mmol/L Carbon Dioxide 21 L 23 (22-30) mmol/L BUN 11 13 (7-17) mg/dL Creatinine 1.5 H 0.8 (0.6-1.2) mg/dL Glucose 393 H 391 H (65-100) mg/dL Calcium 9.5 9.5 (8.4-10.2) mg/dL AST 98 H (5-40) units/L ALT 34 (7-56) units/L Alkaline Phosphatase 79 (35-129) units/L Total Protein 7.4 (6.3-8.2) g/dL Albumin 4.2 (3.9-5) g/dL - Imaging and Cardiology Echo: report reviewed (Echocardiogram 01/06/2022: LVEF 35 to 40% LV mildly dilated. LV SF moderately decreased. Moderate global hypokinesis of the left ventricle. RV SF normal.) EKG: report reviewed, image reviewed EKG interpretations - Telemetry EKG Rhythm: Sinus Tachycardia Assessment and Plan NSTEMI with chest pain * Patient is currently chest pain-free. Twelve-lead shows no acute ischemic changes. Troponin is elevated and trending downward. * Continue aspirin 81 mg, Imdur 30 mg daily. * Will plan for Lexiscan rest/stress MPI in a.m. N.p.o. after midnight. No caffeine. * Continue to trend troponins. Acute on chronic heart failure reduced ejection fraction in setting of cardiomyopathy * Continue Lasix 40 mg daily * GDMT as tolerated: ASA, atorvastatin 40 nightly, lisinopril 40 mg twice daily, Coreg 12.5 mg twice daily. Hypertension in setting of medication noncompliance * Patient is currently normotensive and states she is not taking her prescribed clonidine. Will discontinue. Cocaine use * Benefit of beta-melissa in severe cardiomyopathy outweighs risk of use with hx of cocaine in hospital setting. Lexiscan stress test in a.m. N.p.o. after midnight. We will follow This patient was seen in conjunction with Dr. Myers who agrees with assessment and plan of care. - Patient Problems (1) Substance abuse Current Visit: Yes Status: Acute (2) Altered mental status associated with intoxication Current Visit: Yes Status: Acute (3) Cellulitis of left upper extremity Current Visit: Yes Status: Acute (4) Elevated troponin Current Visit: Yes Status: Acute (5) Cardiomyopathy Current Visit: No Status: Chronic (6) Diabetes Current Visit: No Status: Chronic
[2021-12-29 13:24] LABS: Hematocrit 33.9 % (30.3-42.9); Hemoglobin 10.5 gm/dl (10.1-14.3); Mean Corpuscular HGB Conc 31 % (30-34); Mean Corpuscular Volume 73 fl (79-97); Platelet Count 244 K/mm3 (140-440); Red Blood Count 4.65 M/mm3 (3.65-5.03); Red Cell Distribution Width 17.2 % (13.2-15.2)
[2021-12-29 13:35] LABS: INR 1.03 (0.87-1.13)
[2021-12-29 13:36] LABS: Partial Thromboplastin Time 29.7 Sec. (24.2-36.6)
[2021-12-29] MEDS ORDERED: DEXTROSE 50% IN WATER (25GM) 50 ML SYRINGE IV PRN (14:07)
[2021-12-29] MEDS: INSULIN REGULAR, HUMAN 100 UNITS/1 ML SUB-Q SCH ×4 (16:05→21:51)
[2021-12-29] MEDS: predniSONE 20 MG TAB PO SCH (16:05)
--- NOTE | 2021-12-29 16:56 | Event Note ---
Date: 12/29/21 #Acute respiratory failure- resolved #Acute toxic metabolic encephalopathy- resolved -secondary to ingestion of recreational substances -s/p Narcan in the ED -continue to monitor #Elevated troponinimproving 0.207 --> 0.174 Possibly secondary to acute heart failure exacerbation. No need to continue trending. #Drug reaction rash Possibly worsened by administration of Levaquin versus Rocephin Antibiotics discontinued. Continue prednisone 40 mg daily and monitor skin closely. No significant abnormality of labs suggestive of dress syndrome, Golden- Larry syndrome, toxic epidermal necrolysis CT of left shoulder/upper extremity unremarkable for gas and subcutaneous tissues Continue to monitor. #Insulin dependent type II diabetes mellitus with hyperglycemia - hemoglobin A1c: Unknown - current regimen: NPH 70/30 20 units twice daily, regular insulin 5 units q. ACH, and moderate SSI - blood glucose goal 140-180 while inpatient - continue to monitor #Acute diastolic heart failure Pro BNP 2452 Continue diuresis with IV Lasix 40 mg daily, fluid restriction, salt restriction, and monitoring daily weights. Cardiology consulted; appreciate recs Planning for nuclear stress test tomorrow morning. Patient to be n.p.o. at midnight. TTE pending to evaluate EF #Hypertension - home medications: Lisinopril 10 mg daily - current medications: - SBP goal <160 and DBP goal <90 while inpatient - continue to monitor #Elevated lactic acidresolved #Morbid obesity #Weight loss counseling #Exercise counseling - BMI 45.6 - Counseled patient on the importance of weight loss, incorporating exercise, and dietary changes (lean meats, fresh fruits and vegetables, and water intake). Patient expresses understanding. - Time: +15 min #Polysubstance dependence -Patient engages in the following substances: Cocaine and marijuana -Counseled patient about the importance of cessation of substance abuse. Offered resources to help with quitting. Patient expresses understanding. -Time: +10 mins #Coordination of CARE time: 30 minutes. Total visit time equals 30 or more minutes with greater than 50% spent [id number] on coordination of care and counseling.
[2021-12-29] MEDS ORDERED: INSULIN NPH/REGULAR 70/30 INJ SUB-Q SCH (17:00)
[2021-12-29] MEDS: LISINOPRIL 10 MG TAB PO SCH (21:50)
[2021-12-30] MEDS: MORPHINE 2 MG/1 ML INJ IV PRN ×2 (01:53→05:55)
[2021-12-30] MEDS: IPRATROPIUM/ALBUTEROL SULFATE 3 ML AMPUL.NEB IH SCH ×3 (02:48→08:09)
[2021-12-30] MEDS ORDERED: REGADENOSON 0.4 MG/5 ML INJ IV ONE ×2 (07:39→09:47)
[2021-12-30] MEDS: INSULIN REGULAR, HUMAN 100 UNITS/1 ML SUB-Q SCH ×4 (08:00→12:56)
[2021-12-30] MEDS ORDERED: INSULIN NPH/REGULAR 70/30 INJ SUB-Q SCH (08:00)
[2021-12-30 08:01] LABS: Basophils % (Auto) 0.2 % (0.0-1.8); Hematocrit 34.3 % (30.3-42.9); Hemoglobin 10.6 gm/dl (10.1-14.3); Lymphocytes # (Auto) 2.2 K/mm3 (1.2-5.4); Lymphocytes % (Auto) 21.3 % (13.4-35.0); Mean Corpuscular HGB Conc 31 % (30-34); Mean Corpuscular Volume 73 fl (79-97); Monocytes # (Auto) 0.5 K/mm3 (0.0-0.8); Platelet Count 249 K/mm3 (140-440); Red Blood Count 4.72 M/mm3 (3.65-5.03); Red Cell Distribution Width 17.3 % (13.2-15.2)
[2021-12-30 08:17] LABS: Blood Urea Nitrogen 16 mg/dL (7-17); Calcium 9.9 mg/dL (8.4-10.2); Hemolysis Index 0
[2021-12-30 08:26] LABS: BUN/Creatinine Ratio 27
[2021-12-30] MEDS ORDERED: ASPIRIN EC 325 MG TAB PO SCH (10:00)
[2021-12-30] MEDS ORDERED: carvediloL 12.5 MG TAB PO SCH (10:17)
--- NOTE | 2021-12-30 10:38 | Electrocardiograph Report ---
[facility] Test Date: 2021-12-30 Test Time: 07:09:55 Pat Name: SHANTELLE SCOTT Department: Room: A472 1 Gender: F [employer]: WEN : [id number] Requested By: BOB SINGH Order Number: [id number] Reading MD: Willie Myers Measurements Intervals [place] Rate: 91 P: 72 DE: 150 QRS: 23 QRSD: 89 T: 29 QT: 374 QTc: 460 Interpretive Statements Sinus rhythm Ventricular premature complex Right atrial enlargement Nonspecific T abnormalities, lateral leads Compared to ECG 12/28/2021 16:33:58 Ventricular premature complex(es) now present Atrial abnormality now present T-wave abnormality now present Sinus tachycardia no longer present Electronically Signed On 12-30-2021 10:37:52 EDT by Willie Myers
[2021-12-30] MEDS ORDERED: carvediloL 25 MG TAB PO SCH (11:00)
--- NOTE | 2021-12-30 12:19 | Nuclear Medicine Report ---
APPROVED REPORT Exam: Nuclear Stress Test Indication: Chest pain Patient Location: [address] [place] [address] Room #: A472 Ht: 5 ft 2 in Wt: 320 lbs BSA: 2.33 m2 HR: 93 bpmBP: 125/85 mmHgBMI: 58.52 Rhythm: Sinus Rhythm Stress Test Details Stress Test: Pharmacologic stress testing performed using 0.4 mg of regadenoson per 5 mL given IV over 10 seconds. Reason for pharmacologic stress test: physical limitation. HR Resting HR: 98 bpm Max HR Achieved: 110 bpm Max Heart Rate (APMHR): 179.462982 bpm Target HR (85% APMHR): 152.980926 bpm % of APMHR: 61.45 Recovery HR: 99 bpm HR response to stress: Normal HR response to stress BP Resting BP: 125/85 mmHg Max BP: 140/105 mmHg Recovery BP: 136/88 mmHg BP response to stress: Normal blood pressure response to stress. ECG Resting ECG: Sinus Rhythm Stress ECG: Sinus Tachycardia Arrhythmia: None Recovery ECG: Sinus Rhythm Recovery Arrhythmia: None Clinical Reason for Termination: Completed protocol Stress Symptoms: None NM EXAM: Myocardial Perfusion REST/STRESS Imaging Protocol: Rest Tc-99m/Stress Tc-99m 1 day Resting Data Rest SPECT myocardial perfusion imaging was performed in supine position 45 minutes following the intravenous injection of 10 mCi of Tc-99m Myoview. Time of rest injection: 0645 Date: 12/30/2021 Pharmacologic Stress Pharmacologic stress test was performed by injecting Regadenoson 0.4 mg IV push followed by the intravenous injection of 28 mCi of Tc-99m Myoview. Time of stress injection: 10:05:51 Date: 12/30/2021 Gated Stress SPECT was performed 30 minutes after stress injection. The images were gated to evaluate regional wall motion and calculate left ventricular ejection fraction. Study Data TID = 1.00. Perfusion Nuclear Conclusion ECG Findings: negative for ischemia Clinical Findings: negative for ischemia Nuclear Findings: negative for ischemia Exercise Capacity: not assessed Left Ventricular Function: abnormal Negative Lexiscan EKG. Normal myocardial perfusion mildly dilated LV and stress and rest. No significant ischemia. Moderateto severe LV dysfunction gated EF of 30% suggestive of nonischemic cardiomyopathy
[2021-12-30 12:26] VITALS: BP 126/87
[2021-12-30] MEDS: predniSONE 20 MG TAB PO SCH (12:52)
[2021-12-30] MEDS: ASPIRIN 81 MG TAB CHEW PO SCH (12:52)
[2021-12-30] MEDS: LISINOPRIL 10 MG TAB PO SCH (12:53)
[2021-12-30] MEDS: FUROSEMIDE 40 MG TAB PO SCH (12:53)
[2021-12-30] MEDS: FAMOTIDINE 20 MG TAB PO SCH (12:53)
[2021-12-30] MEDS: FERROUS SULFATE 325 MG TAB PO SCH (12:53)
--- NOTE | 2021-12-30 13:30 | Discharge Summary ---
Providers - Providers Date of Admission: 12/29/21 00:47 Date of discharge: 12/30/21 Attending physician: STEVE MENDEZ MD 12/29/21 Consult to Cardiac Rehabilitation [CONS] Routine Reason For Exam: Phase I 12/29/21 00:47 Consult to Physician [CONS] Routine Comment: Consulting Provider: LEONARDA STEIN Physician Instructions: Reason For Exam: Elevated troponin Primary care physician: WIRE TESTER Hospitalization Reason for admission: Acute hypoxic respiratory failure, acute diastolic heart failure Condition: Stable Pertinent studies: Reviewed. Procedures: Lexiscan stress test Hospital course: Patient is a 41-year-old female past medical history of morbid obesity, asthma, insulin-dependent type 2 diabetes mellitus, COPD, hypertension, heart failure who presented to the ED after being found encephalopathic and less arousable at home by family. Patient endorsed and recreational drug use and assuming that she only consumed cocaine. In the ED the patient received Narcan x1 and was placed on BiPAP due to respiratory distress. The patient's mentation resolved, and she was admitted for further evaluation. While in the ED, the patient developed drug reaction likely secondary to administration of Levaquin resulting in edema and the development of bulla on the patient's left upper extremity/shoulder and outer left breast. The patient was administered IV steroids, and a CT of the left shoulder was unremarkable for gas in the subcutaneous tissues concerning for possible TPN versus necrotizing fasciitis. On admission the patient was found to have an elevated troponin and elevated proBNP (2452), and cardiology was consulted. Patient underwent IV diuresis, fluid restriction, and salt restriction. Patient underwent nuclear stress test that was unremarkable for reversible ischemia. Patient will continue with goal- directed medical therapy. The patient has since remained hemodynamically stable, and she will be discharged with 7-day course of oral steroids. Patient has been counseled on cessation of polysubstances (urinalysis remarkable for cocaine and marijuana), she expresses understanding. Patient will follow up with primary care provider upon discharge. Patient is medically clear for discharge. Disposition: 01 HOME / SELF CARE / HOMELESS Final Discharge Diagnosis (Prints w/discharge instructions): Acute hypoxic respiratory failure, acute toxic metabolic encephalopathy, elevated troponin, drug reaction rash, insulin-dependent type 2 diabetes mellitus with hyperglycemia, acute diastolic heart failure, hypertension, elevated lactic acid, morbid obesity, polysubstance dependence. Time spent for discharge: 45 min Core Measure Documentation - Palliative Care Palliative Care/ Comfort Measures: Not Applicable - Core Measures Any of the following diagnoses?: heart failure - Heart Failure Discharge Requirements TONNY/ARB for LVSD if EF <40%: Yes Beta melissa at discharge: Yes Exam - Constitutional Vitals: Temp Pulse Resp BP Pulse Ox 97.9 F 98 H 18 126/87 99 12/30/21 07:55 12/30/21 07:55 12/30/21 07:55 12/30/21 10:20 12/30/21 07:55 General appearance: Present: no acute distress, obese - EENT Eyes: Present: PERRL, EOM intact ENT: hearing intact, clear oral mucosa, dentition normal - Neck Neck: Present: supple, normal ROM - Respiratory Respiratory effort: normal Respiratory: bilateral: CTA - Cardiovascular Rhythm: regular Heart Sounds: Present: S1 & S2 - Extremities Extremities: no ischemia, pulses intact, pulses symmetrical, No edema, normal temperature, normal color Peripheral Pulses: within normal limits - Abdominal General gastrointestinal: Present: soft, non-tender, non-distended, normal bowel sounds Female genitourinary: Present: deferred - Rectal Rectal Exam: deferred - Integumentary Integumentary: Present: clear, warm, dry - Musculoskeletal Musculoskeletal: strength equal bilaterally - Psychiatric Psychiatric: appropriate mood/affect, intact judgment & insight, memory intact, cooperative - Neurologic Neurologic: CNII-XII intact, moves all extremities - Allied Health Allied health notes reviewed: nursing Plan Activity: advance as tolerated Diet: low salt, diabetic Additional Instructions: Patient is a 41-year-old female past medical history of morbid obesity, asthma, insulin-dependent type 2 diabetes mellitus, COPD, hypertension, heart failure who presented to the ED after being found encephalopathic and less arousable at home by family. Patient endorsed and recreational drug use and assuming that she only consumed cocaine. In the ED the patient received Narcan x1 and was placed on BiPAP due to respiratory distre ss. The patient's mentation resolved, and she was admitted for further evaluation. While in the ED, the patient developed drug reaction likely secondary to administration of Levaquin resulting in edema and the development of bulla on the patient's left upper extremity/shoulder and outer left breast. The patient was administered IV steroids, and a CT of the left shoulder was unremarkable for gas in the subcutaneous tissues concerning for possible TPN versus necrotizing fasciitis. On admission the patient was found to have an elevated troponin and elevated proBNP (2452), and cardiology was consulted. Patient underwent IV diuresis, fluid restriction, and salt restriction. Patient underwent nuclear stress test that was unremarkable for reversible ischemia. Patient will continue with goal-directed medical therapy. The patient has since remained hemodynamically stable, and she will be discharged with 7-day course of oral steroids. Patient has been counseled on cessation of polysubstances (urinalysis remarkable for cocaine and marijuana), she expresses understanding. Patient will follow up with primary care provider upon discharge. Patient is medically clear for discharge. Care Plan Goals: Patient is medically cleared for discharge. Assessment: Patient is a 41-year-old female past medical history of morbid obesity, asthma, insulin-dependent type 2 diabetes mellitus, COPD, hypertension, heart failure who presented to the ED after being found encephalopathic and less arousable at home by family. Patient endorsed and recreational drug use and assuming that she only consumed cocaine. In the ED the patient received Narcan x1 and was placed on BiPAP due to respiratory distress. The patient's mentation resolved, and she was admitted for further evaluation. While in the ED, the patient developed drug reaction likely secondary to administration of Levaquin resulting in edema and the development of bulla on the patient's left upper extremity/shoulder and outer left breast. The patient was administered IV steroids, and a CT of the left shoulder was unremarkable for gas in the subcutaneous tissues concerning for possible TPN versus necrotizing fasciitis. On admission the patient was found to have an elevated troponin and elevated proBNP (2452), and cardiology was consulted. Patient underwent IV diuresis, fluid restriction, and salt restriction. Patient underwent nuclear stress test that was unremarkable for reversible ischemia. Patient will continue with goal- directed medical therapy. The patient has since remained hemodynamically stable, and she will be discharged with 7-day course of oral steroids. Patient has been counseled on cessation of polysubstances (urinalysis remarkable for cocaine and marijuana), she expresses understanding. Patient will follow up with primary care provider upon discharge. Patient is medically clear for discharge. Follow up with: TATYANA PADGETT MD [Primary Care Provider] - 3-5 Days GARY RODRIGUEZ MD [Staff Physician] - 7 Days Forms: Work/School Release Form Prescriptions: AtorvaSTATin [Lipitor] 40 mg PO QHS #30 tablet Montelukast [Singulair] 10 mg PO QHS #30 tablet Albuterol Sulfate [Albuterol 0.63% NEBS] 0.63 mg IH TID PRN #2 inh PRN Reason: Wheezing Aspirin [Aspirin BABY CHEW TAB] 81 mg PO QDAY #30 tab.chew cloNIDine [Catapres] 0.1 mg PO BID #60 tablet carvediloL [Coreg] 25 mg PO Q12HR #60 tablet predniSONE [Deltasone] 20 mg PO QDAY #5 tablet Apixaban [Eliquis] 5 mg PO Q12HR #60 tab ISOSORBIDE MONOnitrate [Imdur ER] 30 mg PO QDAY #30 tablet Insulin Glargine [Lantus VIAL] 35 units SQ DAILY #2 vial Furosemide [Lasix] 40 mg PO DAILY #30 tab ALBUTEROL NEB's [Proventil 0.083% NEBS] 2.5 mg IH Q4H PRN #3 inh PRN Reason: Wheezing lisinopriL [Zestril TAB] 10 mg PO QDAY #30 tab
--- NOTE | 2021-12-30 13:57 | Progress Note ---
Assessment and Plan 41 year-old female with significant history of heart failure with unknown EF, asthma, type 2 diabetes. Patient was previously unknown to our practice. She presents to [facility] ER with chief complaint of somnolence since, altered mental status Cardiographics: EKG: shows sinus tach heart rate 121 with no acute ischemic changes. Negative Lexiscan EKG. Normal myocardial perfusion. Mildly dilated LV and stress and rest. No significant ischemia. Moderate to severe LV dysfunction gated EF of 30% suggestive of nonischemic cardiomyopathy Echo: Left ventricular systolic function is moderately decreased. There is moderate global hypokinesis of the left ventricle. LVEF is 35 to 40%. Right ventricle: RV systolic function is normal A/P: NSTEMI with chest pain Patient is currently chest pain-free. Twelve-lead shows no acute ischemic changes. Troponin is elevated and trending downward. Continue aspirin 81 mg, Imdur 30 mg daily. Acute on chronic heart failure reduced ejection fraction in setting of cardiomyopathy Continue Lasix 40 mg daily GDMT as tolerated: ASA, atorvastatin 40 nightly, lisinopril 40 mg twice daily, Coreg 25 mg twice daily, lasix 40 mg PO daily, Hypertension in setting of medication noncompliance Patient is currently normotensive Cocaine use Benefit of beta-melissa in severe cardiomyopathy outweighs risk of use with hx of cocaine in hospital setting. Patient stable for discharge from cardiac standpoint. Please continue GDMT outpatient. Follow up outpatient: [facility]. 01/24/22 @ [address] Myers. This patient was seen in conjunction with Dr. Myers who agrees with assessment and plan of care. - Patient Problems (1) NSTEMI (non-ST elevated myocardial infarction) Current Visit: Yes Status: Acute (2) Altered mental status Current Visit: Yes Status: Acute (3) Altered mental status associated with intoxication Current Visit: Yes Status: Acute (4) Cellulitis of left upper extremity Current Visit: Yes Status: Acute (5) Elevated troponin Current Visit: Yes Status: Acute Subjective Date of service: 12/30/21 Principal diagnosis: AMS Interval history: Patient seen and examined in hospital room today. Patient is chest pain-free. She is in no apparent distress Telemetry: Sinus rhythm 90s with occasional PVCs. Objective Vital Signs Temp Pulse Pulse Pulse Resp Resp BP 12/30/21 10:20 126/87 12/30/21 10:18 119/82 04/21/22 10:17 135/89 12/30/21 10:16 140/98 12/30/21 10:15 130/100 12/30/21 10:14 129/99 12/30/21 10:13 131/95 12/30/21 10:12 133/96 12/30/21 10:11 144/102 12/30/21 10:10 144/102 12/30/21 10:08 139/88 12/30/21 10:07 152/105 12/30/21 10:06 134/95 12/30/21 10:04 136/102 12/30/21 09:12 140/95 12/30/21 09:07 125/85 12/30/21 07:55 97.9 F 98 H 18 148/103 12/30/21 07:37 97 H 18 12/30/21 04:37 98.4 F 20 132/85 12/30/21 04:00 90 12/30/21 02:49 100 H 18 12/30/21 01:00 109 H 12/30/21 00:08 98.3 F 103 H 20 168/104 12/29/21 22:49 104 H 20 156/100 12/29/21 21:19 119 H 18 12/29/21 21:18 12/29/21 19:56 98.3 F 104 H 20 147/93 12/29/21 16:20 12/29/21 16:18 105 H 20 12/29/21 16:05 98.2 F 67 18 122/77 12/29/21 13:54 Pulse Ox 12/30/21 10:20 12/30/21 10:18 12/30/21 10:17 12/30/21 10:16 12/30/21 10:15 12/30/21 10:14 12/30/21 10:13 12/30/21 10:12 12/30/21 10:11 12/30/21 10:10 12/30/21 10:08 12/30/21 10:07 12/30/21 10:06 12/30/21 10:04 12/30/21 09:12 12/30/21 09:07 12/30/21 07:55 99 12/30/21 07:37 95 12/30/21 04:37 12/30/21 04:00 99 12/30/21 02:49 12/30/21 01:00 100 12/30/21 00:08 99 12/29/21 22:49 97 12/29/21 21:19 12/29/21 21:18 99 12/29/21 19:56 95 12/29/21 16:20 97 12/29/21 16:18 12/29/21 16:05 98 12/29/21 13:54 95 - Physical Examination General: Appears Well, No Apparent Distress HEENT: Positive: PERRL Neck: Positive: neck supple, trachea midline Cardiac: Positive: Reg Rate and Rhythm, S1/S2 Lungs: Positive: Normal Exam Neuro: Positive: Grossly Intact Abdomen: Positive: Unremarkable Skin: Negative: Rash, Wound Extremities: Present: normal. Absent: edema - Labs and Meds CBC 12/30/21 Range/Units 07:24 WBC 10.1 (4.5-11.0) K/mm3 RBC 4.72 (3.65-5.03) M/mm3 Hgb 10.6 (10.1-14.3) gm/dl Hct 34.3 (30.3-42.9) % Plt Count 249 (140-440) K/mm3 Lymph # (Auto) 2.2 (1.2-5.4) K/mm3 [place] # (Auto) 0.5 (0.0-0.8) K/mm3 Eos # (Auto) 0.0 (0.0-0.4) K/mm3 Baso # (Auto) 0.0 (0.0-0.1) K/mm3 Comprehensive Metabolic Panel 12/30/21 Range/Units 07:24 Sodium 136 L (137-145) mmol/L Potassium 4.7 (3.6-5.0) mmol/L Chloride 96.6 L (98-107) mmol/L Carbon Dioxide 27 (22-30) mmol/L BUN 16 (7-17) mg/dL Creatinine 0.6 (0.6-1.2) mg/dL Glucose 360 H (65-100) mg/dL Calcium 9.9 (8.4-10.2) mg/dL - Imaging and Cardiology EKG: report reviewed, image reviewed Echo: report reviewed (Echocardiogram 01/06/2022: LVEF 35 to 40% LV mildly dilated. LV SF moderately decreased. Moderate global hypokinesis of the left ventricle. RV SF normal.) - Telemetry EKG Rhythm: Sinus Rhythm
[2021-12-30] MEDS ORDERED: APIXABAN 5 MG TAB PO SCH (14:00)
[2021-12-30] MEDS ORDERED: IPRATROPIUM/ALBUTEROL SULFATE 3 ML AMPUL.NEB IH SCH (20:00)
== END 2021-12-30 18:24 | disposition home or self-care (01) | DRG 917 ==
LOC: ED 15:54 → 4A 12-29 00:47
PROVIDERS: ADMIT Hospitalist; ATTEND Student in an Organized Health Care Education/Training Program
DX: T40.5X1A Poisoning by cocaine, accidental (unintentional), initial encounter (principal); G92.8 Other toxic encephalopathy; I21.4 Non-ST elevation (NSTEMI) myocardial infarction; J96.01 Acute respiratory failure with hypoxia; I50.31 Acute diastolic (congestive) heart failure; I11.0 Hypertensive heart disease with heart failure; E87.2 Acidosis; E66.01 Morbid (severe) obesity due to excess calories; L03.114 Cellulitis of left upper limb; F19.90 Other psychoactive substance use, unspecified, uncomplicated; Z68.42 Body mass index [BMI] 45.0-49.9, adult; Z71.3 Dietary counseling and surveillance; E11.9 Type 2 diabetes mellitus without complications; F17.200 Nicotine dependence, unspecified, uncomplicated; Z83.3 Family history of diabetes mellitus; Z88.0 Allergy status to penicillin; I42.9 Cardiomyopathy, unspecified; Z91.14 Patient's other noncompliance with medication regimen; E11.65 Type 2 diabetes mellitus with hyperglycemia; T40.711A Poisoning by cannabis, accidental (unintentional), initial encounter
CPT/HCPCS: 36415; 70450; 71045; 78452; 80048; 80053; 80061; 80307; 81001; 82140; 82565; 82803; 82962; 83880; 84484; 84703; 85007; 85025; 85027; 85610; 85730; 87040; 87086; 93005; 93017; 93306; 94640; 94644; 99406; G0378; J7502; Q0177; Q9967; A9502; C8929; J1170; J1200; J1815; J1956; J2270; J2310; J2785; J2930

== ENCOUNTER 2022-01-19 17:33 | Emergency (ER) | payer MEDICAID ==
[2022-01-19] MEDS ORDERED: SODIUM CHLORIDE 0.9% 1000 ML 1,000 ML IV ONE (22:28)
--- NOTE | 2022-01-19 22:49 | Emergency Department Report ---
ED Abdominal Pain HPI - General Chief Complaint: Back Pain/Injury Stated Complaint: BACK PAIN Time Seen by Provider: 01/19/22 22:26 Source: patient, EMS Mode of arrival: Stretcher Limitations: No Limitations - History of Present Illness Initial Comments: Patient 41-year-old female with history of obesity and renal stones. Patient presents for left flank pain radiating suprapubic x4 days. Patient denies fevers or chills she does endorse nausea urinary frequency urgency and dysuria. There is no hematuria. There have been no vomiting. Symptoms are exacerbated by voiding. Symptoms are relieved by nothing tried. Patient currently followed by [place] primary care states allergy to penicillins. There is no other complaint at this time. MD Complaint: flank pain - Related Data Home Medications Medication Instructions Recorded Confirmed Last Taken Albuterol Sulfate [Ventolin HFA] 2 puff IH TID PRN 03/11/14 12/29/21 12/27/21 ALBUTEROL NEB's 3 ml INHALATION Q4HR PRN 12/04/21 12/29/21 12/27/21 Ferrous Sulfate 324 MG 325 mg PO DAILY 12/04/21 12/29/21 Unknown Insulin Lispro [Humalog] 10 unit SQ TIDAC 12/04/21 12/29/21 12/27/21 Previous Rx's Medication Instructions Recorded Last Taken Type ALBUTEROL NEB's [Proventil 0.083% 2.5 mg IH Q4H PRN #3 inh 12/30/21 Unknown Rx NEBS] Albuterol Sulfate [Albuterol 0.63% 0.63 mg IH TID PRN #2 inh 12/30/21 Unknown Rx NEBS] Apixaban [Eliquis] 5 mg PO Q12HR #60 tab 12/30/21 Unknown Rx Aspirin [Aspirin BABY CHEW TAB] 81 mg PO QDAY #30 tab.chew 12/30/21 Unknown Rx AtorvaSTATin [Lipitor] 40 mg PO QHS #30 tablet 12/30/21 Unknown Rx Furosemide [Lasix] 40 mg PO DAILY #30 tab 12/30/21 Unknown Rx ISOSORBIDE MONOnitrate [Imdur ER] 30 mg PO QDAY #30 tablet 12/30/21 Unknown Rx Insulin Glargine [Lantus VIAL] 35 units SQ DAILY #2 vial 12/30/21 Unknown Rx Montelukast [Singulair] 10 mg PO QHS #30 tablet 12/30/21 Unknown Rx carvediloL [Coreg] 25 mg PO Q12HR #60 tablet 12/30/21 Unknown Rx cloNIDine [Catapres] 0.1 mg PO BID #60 tablet 12/30/21 Unknown Rx lisinopriL [Zestril TAB] 10 mg PO QDAY #30 tab 12/30/21 Unknown Rx predniSONE [Deltasone] 20 mg PO QDAY #5 tablet 12/30/21 Unknown Rx Ketorolac [Toradol] 10 mg PO Q6H PRN #12 tab 01/20/22 Unknown Rx levoFLOXacin [Levaquin TAB] 500 mg PO QDAY #7 tablet 01/20/22 Unknown Rx Allergies Allergy/AdvReac Type Severity Reaction Status Date / Time Penicillins AdvReac Dizziness Verified 01/19/22 17:51 ED Review of Systems ROS: Stated complaint: BACK PAIN Other details as noted in HPI Constitutional: denies: chills, fever Eyes: denies: eye pain, eye discharge, vision change ENT: denies: ear pain, throat pain Respiratory: denies: cough, shortness of breath, wheezing Cardiovascular: as per HPI Endocrine: no symptoms reported Gastrointestinal: abdominal pain, nausea. denies: vomiting Genitourinary: denies: urgency, dysuria, discharge Musculoskeletal: back pain. denies: joint swelling, arthralgia Skin: denies: rash, lesions Neurological: denies: headache, weakness, paresthesias Psychiatric: denies: anxiety, depression Hematological/Lymphatic: denies: easy bleeding, easy bruising ED Past Medical Hx - Past Medical History Hx Hypertension: Yes Hx Congestive Heart Failure: Yes Hx Diabetes: Yes Hx Asthma: Yes Hx COPD: No Hx HIV: No - Surgical History Additional Surgical History: "internal bleeding in stomach; surgery x 3". c- section - Social History Smoking Status: Current Some Day Smoker - Medications Home Medications: Home Medications Medication Instructions Recorded Confirmed Last Taken Type Albuterol Sulfate [Ventolin HFA] 2 puff IH TID PRN 03/11/14 12/29/21 12/27/21 History ALBUTEROL NEB's 3 ml INHALATION Q4HR PRN 12/04/21 12/29/21 12/27/21 History Ferrous Sulfate 324 MG 325 mg PO DAILY 12/04/21 12/29/21 Unknown History Insulin Lispro [Humalog] 10 unit SQ TIDAC 12/04/21 12/29/21 12/27/21 History ALBUTEROL NEB's [Proventil 0.083% 2.5 mg IH Q4H PRN #3 inh 12/30/21 Unknown Rx NEBS] Albuterol Sulfate [Albuterol 0.63% 0.63 mg IH TID PRN #2 inh 12/30/21 Unknown Rx NEBS] Apixaban [Eliquis] 5 mg PO Q12HR #60 tab 12/30/21 Unknown Rx Aspirin [Aspirin BABY CHEW TAB] 81 mg PO QDAY #30 tab.chew 12/30/21 Unknown Rx AtorvaSTATin [Lipitor] 40 mg PO QHS #30 tablet 12/30/21 Unknown Rx Furosemide [Lasix] 40 mg PO DAILY #30 tab 12/30/21 Unknown Rx ISOSORBIDE MONOnitrate [Imdur ER] 30 mg PO QDAY #30 tablet 12/30/21 Unknown Rx Insulin Glargine [Lantus VIAL] 35 units SQ DAILY #2 vial 12/30/21 Unknown Rx Montelukast [Singulair] 10 mg PO QHS #30 tablet 12/30/21 Unknown Rx carvediloL [Coreg] 25 mg PO Q12HR #60 tablet 12/30/21 Unknown Rx cloNIDine [Catapres] 0.1 mg PO BID #60 tablet 12/30/21 Unknown Rx lisinopriL [Zestril TAB] 10 mg PO QDAY #30 tab 12/30/21 Unknown Rx predniSONE [Deltasone] 20 mg PO QDAY #5 tablet 12/30/21 Unknown Rx Ketorolac [Toradol] 10 mg PO Q6H PRN #12 tab 01/20/22 Unknown Rx levoFLOXacin [Levaquin TAB] 500 mg PO QDAY #7 tablet 01/20/22 Unknown Rx ED Physical Exam - General Limitations: No Limitations General appearance: alert, in no apparent distress - Head Head exam: Present: normocephalic, normal inspection - Eye Eye exam: Present: normal appearance, EOMI Pupils: Present: normal accommodation - ENT ENT exam: Present: mucous membranes moist - Neck Neck exam: Present: normal inspection, full ROM. Absent: tenderness - Respiratory Respiratory exam: Present: normal lung sounds bilaterally. Absent: respiratory distress, wheezes, stridor - Cardiovascular Cardiovascular Exam: Present: regular rate, normal rhythm, normal heart sounds. Absent: systolic murmur, diastolic murmur, rubs, gallop - GI/Abdominal GI/Abdominal exam: Present: soft, tenderness (Obese), normal bowel sounds - Rectal Rectal exam: Present: deferred - Extremities Exam Extremities exam: Present: normal inspection, full ROM, normal capillary refill. Absent: tenderness - Back Exam Back exam: Present: normal inspection, full ROM, CVA tenderness (L). Absent: CVA tenderness (R) - Neurological Exam Neurological exam: Present: alert, oriented X3, CN II-XII intact - Psychiatric Psychiatric exam: Present: normal affect, normal mood - Skin Skin exam: Present: dry, intact, rash (Cellulitis to the left shoulder left anterior chest wall), erythema, urticaria. Absent: cyanosis, diaphoretic, ecchymosis ED Course Vital Signs 01/19/22 17:46 Pulse Rate 104 H Blood Pressure 174/78 [Left] O2 Sat by Pulse 99 Oximetry ED Medical Decision Making - Lab Data Result diagrams: 01/19/22 22:40 01/19/22 22:40 - Radiology Data Radiology results: report reviewed, image reviewed CT ABDOMEN AND PELVIS WITHOUT CONTRAST INDICATION / CLINICAL INFORMATION: LEFT sided flank pain, radiates suprapubic x 4 days. stone(s). TECHNIQUE: Axial CT images were obtained through the abdomen and pelvis without IV contrast. All CT scans at this location are performed using CT dose reduction for ALARA by means of automated exposure control. COMPARISON: None available. FINDINGS: LOWER CHEST: No significant abnormality. AORTA / ARTERIES: Mild atherosclerotic calcification without acute abnormality. IVC / VEINS: No significant abnormality. LYMPH NODES: No significant adenopathy. COLON: Diverticulosis without acute inflammation. APPENDIX: No significant abnormality. STOMACH / SMALL BOWEL: No significant abnormality. PERITONEUM: No free fluid. No free air. No fluid collection. LIVER: No significant abnormality. GALLBLADDER: No significant abnormality. BILE DUCTS: No significant abnormality. PANCREAS: No significant abnormality. SPLEEN: No significant abnormality. ADRENALS: No significant abnormality. RIGHT KIDNEY / URETER: Multiple renal stones measuring up to 3 mm. No hydronephrosis. LEFT KIDNEY / URETER: Multiple renal stones measuring up to 8 mm. No hydronephrosis. URINARY BLADDER: No significant abnormality. REPRODUCTIVE ORGANS: No significant abnormality. SKELETAL SYSTEM: Scattered degeneration. ADDITIONAL FINDINGS: None. IMPRESSION: 1. Bilateral nephrolithiasis without hydronephrosis. Signer Name: Delgado Day DO Signed: 01/20/2022 12:34 AM Workstation Name: [id number] Transcribed By: ZACH Dictated By: DELGADO DAY DO Electronically Authenticated By: DELGADO DAY DO Signed Date/Time: 01/20/2233 DD/ TD/TT: - Medical Decision Making CT abdomen and pelvis demonstrates bilateral renal stones nonobstructing. Plan DC to home, with prescriptions, follow-up with urology in 2 to 3 days. Return to emergency department should symptoms worsen. Patient verbalized agreement and understanding with discharge plan. Critical care attestation.: If time is entered above; I have spent that time in minutes in the direct care of this critically ill patient, excluding procedure time. ED Disposition Clinical Impression: Kidney stones Disposition: HOME / SELF CARE / HOMELESS Is pt being admited?: No Does the pt Need Aspirin: No Condition: Stable Instructions: Kidney Stones, [id number], Dietary Guidelines to Help Prevent Kidney Stones, Low-Purine Eating Plan Additional Instructions: Take medications as prescribed, follow-up with urology in 2 to 3 days as scheduled. Return to emergency department should symptoms get worsen. Prescriptions: levoFLOXacin [Levaquin TAB] 500 mg PO QDAY #7 tablet Ketorolac [Toradol] 10 mg PO Q6H PRN #12 tab PRN Reason: pain Referrals: FITO RODRIGUEZ MD [Staff Physician] - 3-5 Days ALLEY STEVENSON MD [Staff Physician] - 3-5 Days Forms: Work/School Release Form(ED) Time of Disposition: 01:26
[2022-01-19 22:58] LABS: Bilirubin,Urine NEG (Negative); Blood,Urine LG (Negative); Color,Urine Yellow (Yellow); Urobilinogen,Urine < 2.0 mg/dL (<2.0); WBC,Urine > 182.0 /HPF (0.0-6.0)
[2022-01-19 23:04] LABS: Basophils # (Auto) 0.1 K/mm3 (0.0-0.1); Basophils % (Auto) 1.3 % (0.0-1.8); Eosinophils # (Auto) 0.1 K/mm3 (0.0-0.4); Eosinophils % (Auto) 1.4 % (0.0-4.3); Hematocrit 40.4 % (30.3-42.9); Hemoglobin 12.5 gm/dl (10.1-14.3); Lymphocytes # (Auto) 2.8 K/mm3 (1.2-5.4); Mean Corpuscular HGB Conc 31 % (30-34); Mean Corpuscular Volume 75 fl (79-97); Monocytes # (Auto) 0.6 K/mm3 (0.0-0.8); Platelet Count 277 K/mm3 (140-440); Red Blood Count 5.42 M/mm3 (3.65-5.03); Red Cell Distribution Width 18.3 % (13.2-15.2)
[2022-01-19] MEDS ORDERED: KETOROLAC 30 MG/1 ML INJ IV ONE (23:18)
[2022-01-19] MEDS ORDERED: cefTRIAXone/NS 1 GM/50 ML 1 GM/50 ML BAG IV ONE (23:18)
[2022-01-19 23:19] LABS: Alanine Aminotransferase 11 units/L (7-56); Albumin 4.4 g/dL (3.9-5); Blood Urea Nitrogen 6 mg/dL (7-17); Calcium 9.7 mg/dL (8.4-10.2); Hemolysis Index 3
[2022-01-19 23:27] LABS: BUN/Creatinine Ratio 9
[2022-01-19 23:48] LABS: HCG Qualitative,Urine Negative (Negative)
--- NOTE | 2022-01-20 00:38 | Cat Scan Report ---
CT ABDOMEN AND PELVIS WITHOUT CONTRAST INDICATION / CLINICAL INFORMATION: LEFT sided flank pain, radiates suprapubic x 4 days. stone(s). TECHNIQUE: Axial CT images were obtained through the abdomen and pelvis without IV contrast. All CT scans at this location are performed using CT dose reduction for ALARA by means of automated exposure control. COMPARISON: None available. FINDINGS: LOWER CHEST: No significant abnormality. AORTA / ARTERIES: Mild atherosclerotic calcification without acute abnormality. IVC / VEINS: No significant abnormality. LYMPH NODES: No significant adenopathy. COLON: Diverticulosis without acute inflammation. APPENDIX: No significant abnormality. STOMACH / SMALL BOWEL: No significant abnormality. PERITONEUM: No free fluid. No free air. No fluid collection. LIVER: No significant abnormality. GALLBLADDER: No significant abnormality. BILE DUCTS: No significant abnormality. PANCREAS: No significant abnormality. SPLEEN: No significant abnormality. ADRENALS: No significant abnormality. RIGHT KIDNEY / URETER: Multiple renal stones measuring up to 3 mm. No hydronephrosis. LEFT KIDNEY / URETER: Multiple renal stones measuring up to 8 mm. No hydronephrosis. URINARY BLADDER: No significant abnormality. REPRODUCTIVE ORGANS: No significant abnormality. SKELETAL SYSTEM: Scattered degeneration. ADDITIONAL FINDINGS: None. IMPRESSION: 1. Bilateral nephrolithiasis without hydronephrosis. Signer Name: Delgado Day DO Signed: 01/20/2022 12:34 AM Workstation Name: [id number]
[2022-01-20 01:35] VITALS: BP 176/72
== END 2022-01-20 01:40 | disposition home or self-care (01) ==
LOC: ED 17:33
DX: N20.2 Calculus of kidney with calculus of ureter (principal); F17.200 Nicotine dependence, unspecified, uncomplicated; I10 Essential (primary) hypertension; E11.9 Type 2 diabetes mellitus without complications; J45.909 Unspecified asthma, uncomplicated
CPT/HCPCS: 36415; 74176; 80053; 81001; 81025; 85025; 96361; 96365; 96375; 99284; J0696; J1885; J7030